=== PATIENT | female | born 1970 | race African-American/Black ===

== ENCOUNTER 2020-09-16 06:32 | Inpatient (IN) ==
[2020-09-16 08:02] LABS: Amorphous Crystals,Urine Occasional /HPF (Few); Bilirubin,Urine Negative (Negative); Blood, Urine Negative (Negative); Glucose,Urine (UA) Negative (Negative); Ketones,Urine Negative (Negative); Mucus,Urine Occasional /LPF (Occasional); Nitrite,Urine Negative (Negative); Protein,Urine Negative; RBC,Urine 2 /HPF (0-4); Squamous Epithelial Cell,Urine Moderate /HPF (0-10); Urine Appearance CLOUDY (Clear); Urine Color Yellow (Yellow); Urine Specific Gravity 1.014 (1.001-1.035); Urine Urobilinogen < 2.0 EU/DL (0.2-1.0); WBC,Urine 1 /HPF (0-6)
[2020-09-16 08:15] LABS: Barbiturates Screen,Urine Negative (Negative); Benzodiazepines Screen,Urine Negative (Negative); Cannabinoid Screen,Urine Negative (Negative); Opiate Screen,Urine Negative (Negative); Phencyclidine Screen,Urine Negative (Negative)
[2020-09-16] MEDS ORDERED: ONDANSETRON 4 MG/2 ML VIAL IV STA (08:45)
[2020-09-16] MEDS ORDERED: fentaNYL 100 MCG/2 ML VIAL IV STA (08:45)
[2020-09-16 09:16] LABS: Basophils % 0.5 % (0.0-0.8); Eosinophils # 0.1 10*3/uL (0.0-0.87); Eosinophils % 0.7 % (0.00-10.9); Hematocrit 30.4 VOL% (35.7-47.0); Hemoglobin 9.1 GM/DL (12.0-16.0); Immature Granulocytes % 0.4 %; Immature Granulocytes Absolute 0.03 #; Lymphocytes # 1.1 10*3/uL (1.4-4.0); Lymphocytes % 14.3 % (21.3-54.2); Mean Corpuscular HGB Conc 29.9 GM/DL (32-36); Mean Corpuscular Volume 68.5 FL (87-102); Mean Platelet Volume 10.8 FL (9.6-12.0); Monocytes % 9.5 % (1.7-12.7); Neutrophils % 74.6 % (38.7-73.9); Platelet Count 647 T/CUMM (130-400); Red Blood Count 4.44 MC/CUMM (3.8-5.5); Red Cell Distribution Width 16.7 % (9.3-17.3); White Blood Count 7.3 T/CUMM (4-12)
[2020-09-16 09:43] LABS: Albumin 2.7 G/DL (3.4-5.0); Bilirubin,Total 0.4 MG/DL (0.2-1.0); Calcium 10.2 MG/DL (8.5-10.1); Total Protein 8.4 G/DL (6.4-8.3)
[2020-09-16] MEDS ORDERED: BISACODYL 5 MG TABLET PO PRN (10:23)
[2020-09-16] MEDS ORDERED: GLUCAGON 1 MG VIAL IM PRN (10:23)
[2020-09-16] MEDS ORDERED: ACETAMINOPHEN 325 MG TABLET PO PRN (10:23)
[2020-09-16] MEDS ORDERED: DEXTROSE 50% 25 GM/50 ML VIAL IV PRN (10:23)
[2020-09-16] MEDS ORDERED: hydrALAZINE 20 MG/1 ML VIAL IV PRN (10:23)
[2020-09-16] MEDS ORDERED: HYDROmorphone 2 MG/1 ML VIAL IV PRN (10:27)
[2020-09-16] MEDS ORDERED: ALPRAZolam 0.25 MG TABLET PO PRN (10:28)
[2020-09-16] MEDS ORDERED: diphenhydrAMINE 50 MG/1 ML VIAL IV PRN (10:28)
[2020-09-16 10:55] LABS: Thyroid Stimulating Hormone 1.23 uIU/ml (0.358-3.74)
[2020-09-16] MEDS: ENOXAPARIN 40 MG/0.4 ML SYRINGE SUBCUT SCH (16:36)
[2020-09-16] MEDS ORDERED: oxyCODONE/ACETAMINOPHEN 5-325 MG TABLET PO ONE (19:10)
[2020-09-16] MEDS ORDERED: oxyCODONE/ACETAMINOPHEN 5-325 MG TABLET ONE (19:13)
[2020-09-16] MEDS ORDERED: GABAPENTIN 100 MG CAPSULE ONE (19:15)
[2020-09-16] MEDS: FERROUS SULFATE 325 MG TABLET PO SCH (23:38)
[2020-09-17 05:03] LABS: Total Protein (Chem) 8.4 G/DL (6.4-8.3)
[2020-09-17 05:57] LABS: Basophils % 0.5 % (0.0-0.8); Eosinophils # 0.1 10*3/uL (0.0-0.87); Eosinophils % 1.1 % (0.00-10.9); Hematocrit 30.7 VOL% (35.7-47.0); Hemoglobin 8.9 GM/DL (12.0-16.0); Immature Granulocytes % 0.5 %; Immature Granulocytes Absolute 0.03 #; Lymphocytes # 0.9 10*3/uL (1.4-4.0); Lymphocytes % 14.2 % (21.3-54.2); Mean Corpuscular Volume 69.5 FL (87-102); Mean Platelet Volume 11.1 FL (9.6-12.0); Monocytes % 14.5 % (1.7-12.7); Neutrophils % 69.2 % (38.7-73.9); Platelet Count 660 T/CUMM (130-400); Red Blood Count 4.42 MC/CUMM (3.8-5.5); Red Cell Distribution Width 16.2 % (9.3-17.3); White Blood Count 6.3 T/CUMM (4-12)
[2020-09-17 06:11] LABS: Albumin 2.5 G/DL (3.4-5.0); Bilirubin,Total 0.4 MG/DL (0.2-1.0); Calcium 10.3 MG/DL (8.5-10.1); Total Protein 7.7 G/DL (6.4-8.3)
[2020-09-17 06:23] LABS: Immunoglobulin A 428 MG/DL (70-400); Immunoglobulin G 1230 MG/DL (700-1600); Immunoglobulin M 194 MG/DL (40-230)
[2020-09-17 07:18] LABS: Albumin (SPE) 3.9 G/DL (3.2-5.3); Alpha 1 (SPE) 0.5 G/DL (0.1-0.4); Alpha 1 (SPE) Rel % 5.7 %; Alpha 2 (SPE) 1.4 G/DL (0.4-1.0); Alpha 2 (SPE) Rel % 17.1 %; Beta (SPE) 1.3 G/DL (0.5-1.1); Beta (SPE) Rel % 15.6 %; Gamma (SPE) 1.3 G/DL (0.7-1.7); Gamma (SPE) Rel % 15.6 %
[2020-09-17 07:48] LABS: Immunoglobulin A (Chem) 428 MG/DL (70-400); Immunoglobulin G (Chem) 1230 MG/DL (700-1600); Immunoglobulin M (Chem) 194 MG/DL (40-230)
[2020-09-17] MEDS: ALBUTEROL 2.5 MG/3 ML NEB RESP TX PRN ×2 (08:05→16:34)
[2020-09-17 08:18] LABS: INR 1.1; PT Patient Result 11.9 SECS (9.8-11.9)
[2020-09-17] MEDS ORDERED: LIDOCAINE MPF 1% /EPI 30 ML VIAL ONE (09:42)
[2020-09-17] MEDS: fentaNYL 12 MCG/HR PATCH TRANSDERM SCH (11:13)
[2020-09-17] MEDS: FERROUS SULFATE 325 MG TABLET PO SCH ×2 (11:13→21:10)
[2020-09-17] MEDS: DEXAMETHASONE 10 MG/1 ML VIAL IV SCH (11:13)
[2020-09-17] MEDS: KETOROLAC 15 MG/1 ML VIAL IV PRN ×2 (11:14→18:04)
[2020-09-17] MEDS: GABAPENTIN 100 MG CAPSULE PO SCH ×3 (11:14→21:10)
[2020-09-17] MEDS ORDERED: DIAZEPAM 5 MG TABLET PO ONE (12:00)
[2020-09-17] MEDS ORDERED: SODIUM CHLORIDE 0.45% 1,000 ML IV SCH (12:00)
[2020-09-17] MEDS ORDERED: GABAPENTIN 100 MG CAPSULE PO SCH (19:10)
[2020-09-17] MEDS: ENOXAPARIN 40 MG/0.4 ML SYRINGE SUBCUT SCH (21:11)
[2020-09-17] MEDS: MORPHINE 4 MG/1 ML VIAL IV PRN (23:20)
[2020-09-18 07:08] LABS: Basophils % 0.1 % (0.0-0.8); Hematocrit 28.9 VOL% (35.7-47.0); Hemoglobin 8.6 GM/DL (12.0-16.0); Immature Granulocytes % 0.3 %; Immature Granulocytes Absolute 0.02 #; Lymphocytes # 1.1 10*3/uL (1.4-4.0); Lymphocytes % 15.6 % (21.3-54.2); Mean Corpuscular HGB Conc 29.8 GM/DL (32-36); Mean Corpuscular Volume 68.2 FL (87-102); Mean Platelet Volume 10.9 FL (9.6-12.0); Monocytes % 13.2 % (1.7-12.7); Neutrophils % 70.8 % (38.7-73.9); Platelet Count 645 T/CUMM (130-400); Red Blood Count 4.24 MC/CUMM (3.8-5.5); Red Cell Distribution Width 16.5 % (9.3-17.3)
[2020-09-18 07:45] LABS: Albumin 2.5 G/DL (3.4-5.0); Bilirubin,Total 0.5 MG/DL (0.2-1.0); Calcium 10.2 MG/DL (8.5-10.1); Osmolality,Calculated 277.7 MOS/KG (273-304); Total Protein 7.8 G/DL (6.4-8.3)
[2020-09-18] MEDS: MORPHINE 4 MG/1 ML VIAL IV PRN ×3 (09:16→22:03)
[2020-09-18] MEDS: DEXAMETHASONE 10 MG/1 ML VIAL IV SCH (09:18)
[2020-09-18] MEDS: FERROUS SULFATE 325 MG TABLET PO SCH ×2 (09:19→21:11)
[2020-09-18] MEDS: GABAPENTIN 100 MG CAPSULE PO SCH ×3 (09:19→21:11)
[2020-09-18 09:33] LABS: Immuno Free Light Chain Kappa 2.29 MG/DL (0.33-1.94); Immuno Free Light Chain Lambda 2.31 MG/DL (0.57-2.63); Immuno Free Light Chain Ratio 0.99 MG/DL (0.26-1.65)
[2020-09-18] MEDS ORDERED: DIAZEPAM 5 MG TABLET PO ONE (13:30)
[2020-09-18] MEDS: METOPROLOL TARTRATE 25 MG TABLET PO SCH (21:11)
[2020-09-18] MEDS: ENOXAPARIN 40 MG/0.4 ML SYRINGE SUBCUT SCH (21:12)
[2020-09-19 05:45] LABS: Albumin 2.7 G/DL (3.4-5.0); Bilirubin,Total 0.5 MG/DL (0.2-1.0); Calcium 10.2 MG/DL (8.5-10.1); Osmolality,Calculated 276.8 MOS/KG (273-304); Total Protein 7.9 G/DL (6.4-8.3)
[2020-09-19 05:51] LABS: Basophils % 0.2 % (0.0-0.8); Hematocrit 31.5 VOL% (35.7-47.0); Immature Granulocytes % 0.7 %; Immature Granulocytes Absolute 0.07 #; Lymphocytes # 1.6 10*3/uL (1.4-4.0); Lymphocytes % 15.1 % (21.3-54.2); Mean Corpuscular HGB Conc 27.9 GM/DL (32-36); Mean Corpuscular Volume 71.3 FL (87-102); Mean Platelet Volume 11.6 FL (9.6-12.0); Monocytes % 11.7 % (1.7-12.7); Neutrophils % 72.3 % (38.7-73.9); Platelet Count 722 T/CUMM (130-400); Red Blood Count 4.42 MC/CUMM (3.8-5.5); Red Cell Distribution Width 16.7 % (9.3-17.3); White Blood Count 10.7 T/CUMM (4-12)
[2020-09-19 05:53] LABS: Hemoglobin 8.8 GM/DL (12.0-16.0)
[2020-09-19 05:55] LABS: Estradiol 21.8 PG/ML; Follicle Stimulating Hormone 1.5 MIU/ML; Luteinizing Hormone 0.2 MIU/ML
[2020-09-19 06:33] LABS: Hypochromasia 1+; Microcytosis 1+; Ovalocytes Slight; Platelet Estimate Increased
[2020-09-19 06:43] LABS: Hepatitis B Core IgM Quant 0.13 Index; Hepatitis B Surface Ag Quant 0.59 Index; Hepatitis B Surface Ag Result Non-Reactive (NonReactive); Hepatitis C Virus Ab Quant 0.04 Index; Hepatitis C Virus Ab Result Non-Reactive (NonReactive)
[2020-09-19] MEDS: GABAPENTIN 100 MG CAPSULE PO SCH (08:16)
[2020-09-19] MEDS: DEXAMETHASONE 10 MG/1 ML VIAL IV SCH (08:17)
[2020-09-19] MEDS: FERROUS SULFATE 325 MG TABLET PO SCH ×2 (08:17→22:45)
[2020-09-19] MEDS: METOPROLOL TARTRATE 25 MG TABLET PO SCH (08:17)
[2020-09-19] MEDS: MORPHINE 4 MG/1 ML VIAL IV PRN ×3 (08:17→22:45)
[2020-09-19] MEDS ORDERED: oxyCODONE/ACETAMINOPHEN 5-325 MG TABLET PO PRN (09:27)
[2020-09-19] MEDS: TAMOXIFEN 10 MG TABLET PO SCH (16:28)
[2020-09-19] MEDS: GABAPENTIN 300 MG CAPSULE PO SCH ×2 (16:28→22:45)
[2020-09-19] MEDS: ONDANSETRON 4 MG/2 ML VIAL IV PRN (22:45)
[2020-09-19] MEDS: METOPROLOL TARTRATE 50 MG TABLET PO SCH (22:45)
[2020-09-19] MEDS: ENOXAPARIN 40 MG/0.4 ML SYRINGE SUBCUT SCH (23:00)
[2020-09-20] MEDS: MORPHINE 4 MG/1 ML VIAL IV PRN ×2 (02:53→07:46)
[2020-09-20] MEDS: ONDANSETRON 4 MG/2 ML VIAL IV PRN ×2 (02:59→07:45)
[2020-09-20] MEDS: ALBUTEROL 2.5 MG/3 ML NEB RESP TX PRN (06:04)
[2020-09-20] MEDS: FERROUS SULFATE 325 MG TABLET PO SCH (09:35)
[2020-09-20] MEDS: METOPROLOL TARTRATE 50 MG TABLET PO SCH (09:35)
[2020-09-20] MEDS: TAMOXIFEN 10 MG TABLET PO SCH (09:35)
[2020-09-20] MEDS: DEXAMETHASONE 10 MG/1 ML VIAL IV SCH (09:35)
[2020-09-20] MEDS: GABAPENTIN 300 MG CAPSULE PO SCH ×2 (09:35→15:21)
[2020-09-20] MEDS: fentaNYL 12 MCG/HR PATCH TRANSDERM SCH (09:36)
[2020-09-20 13:49] VITALS: BP 143/84
== END 2020-09-20 15:30 | disposition home or self-care (01) | DRG 988 ==
LOC: N.ED 06:32 → N.EDINP 06:32 → SUATTDRO 09:00 → N.5E 21:22
PROVIDERS: ADMIT Internal Medicine; ATTEND Internal Medicine

== ENCOUNTER 2020-10-05 02:32 | Inpatient (IN) ==
[2020-10-05] MEDS ORDERED: SODIUM CHLORIDE 0.9% 1,000 ML IV STA (02:58)
[2020-10-05] MEDS ORDERED: ONDANSETRON 4 MG/2 ML VIAL IV ONE (02:59)
[2020-10-05 04:03] LABS: Basophils % 0.2 % (0.0-0.8); Eosinophils % 0.5 % (0.00-10.9); Hematocrit 32.3 VOL% (35.7-47.0); Hemoglobin 9.7 GM/DL (12.0-16.0); Immature Granulocytes % 0.3 %; Immature Granulocytes Absolute 0.02 #; Lymphocytes % 14.4 % (21.3-54.2); Mean Corpuscular Volume 68.6 FL (87-102); Neutrophils % 74.6 % (38.7-73.9); Platelet Count 314 T/CUMM (130-400); Red Blood Count 4.71 MC/CUMM (3.8-5.5); Red Cell Distribution Width 17.3 % (9.3-17.3); White Blood Count 6.6 T/CUMM (4-12)
[2020-10-05 04:05] LABS: Bacteria,Urine Occasional /HPF (Few); Bilirubin,Urine Negative (Negative); Blood, Urine Negative (Negative); Glucose,Urine (UA) >=500 mg/dL (Negative); Hyaline Casts,Urine 2 /LPF (0-3); Ketones,Urine 5 mg/dL (Negative); Mucus,Urine Occasional /LPF (Occasional); Nitrite,Urine Negative (Negative); Protein,Urine Negative; RBC,Urine 4 /HPF (0-4); Squamous Epithelial Cell,Urine Occasional /HPF (0-10); Urine Appearance CLEAR (Clear); Urine Color Yellow (Yellow); Urine Specific Gravity 1.036 (1.001-1.035); Urine Urobilinogen < 2.0 EU/DL (0.2-1.0); WBC,Urine 1 /HPF (0-6)
[2020-10-05 04:20] LABS: Albumin 2.4 G/DL (3.4-5.0); Bilirubin,Total 0.6 MG/DL (0.2-1.0); Calcium 10.3 MG/DL (8.5-10.1); Osmolality,Calculated 278.7 MOS/KG (273-304); Potassium 4.1 MMOL/L (3.5-5.1); Total Protein 7.6 G/DL (6.4-8.3)
[2020-10-05] MEDS ORDERED: PROMETHAZINE 25 MG/1 ML VIAL IM PRN (04:34)
[2020-10-05] MEDS ORDERED: GLUCAGON 1 MG VIAL IM PRN ×2 (04:34→09:30)
[2020-10-05] MEDS ORDERED: NICOTINE 21 MG/24 HR PATCH TRANSDERM PRN (04:34)
[2020-10-05] MEDS ORDERED: diphenhydrAMINE CAP 25 MG CAPSULE PO PRN (04:34)
[2020-10-05] MEDS ORDERED: DEXTROSE 50% 25 GM/50 ML VIAL IV PRN ×2 (04:34→09:30)
[2020-10-05 04:35] LABS: Platelet Estimate Adequate
[2020-10-05] MEDS ORDERED: HYDROmorphone 2 MG/1 ML VIAL IV STA (04:35)
[2020-10-05] MEDS ORDERED: LABETALOL 20 MG/4 ML SYRINGE IV ONE ×2 (05:14→05:15)
[2020-10-05] MEDS: SODIUM CHLORIDE 0.9% 1,000 ML IV SCH ×2 (06:25→15:19)
[2020-10-05] MEDS: GABAPENTIN 300 MG CAPSULE PO SCH ×3 (09:16→20:57)
[2020-10-05] MEDS: TAMOXIFEN 10 MG TABLET PO SCH (09:16)
[2020-10-05] MEDS: ONDANSETRON 4 MG/2 ML VIAL IV PRN ×2 (11:31→15:19)
[2020-10-05] MEDS: MORPHINE 4 MG/1 ML VIAL IV PRN ×3 (11:35→20:57)
[2020-10-05] MEDS: ENOXAPARIN 40 MG/0.4 ML SYRINGE SUBCUT SCH (12:25)
[2020-10-05] MEDS: INSULIN REGULAR 100 UNIT/ML SUBCUT SCH ×3 (12:26→20:58)
[2020-10-05] MEDS ORDERED: ALPRAZolam 0.25 MG TABLET PO PRN (15:46)
[2020-10-05] MEDS: DEXAMETHASONE 4 MG TABLET PO SCH (16:38)
[2020-10-05] MEDS ORDERED: INSULIN GLARGINE 100 UNIT/ML SUBCUT SCH (21:00)
[2020-10-06] MEDS: SODIUM CHLORIDE 0.9% 1,000 ML IV SCH ×3 (01:28→21:13)
[2020-10-06] MEDS: MORPHINE 4 MG/1 ML VIAL IV PRN ×4 (06:13→21:25)
[2020-10-06 06:16] LABS: Hematocrit 27.3 VOL% (35.7-47.0); Hemoglobin 8.1 GM/DL (12.0-16.0); Immature Granulocytes % 0.2 %; Immature Granulocytes Absolute 0.01 #; Lymphocytes # 0.7 10*3/uL (1.4-4.0); Lymphocytes % 15.8 % (21.3-54.2); Mean Corpuscular HGB Conc 29.7 GM/DL (32-36); Mean Corpuscular Volume 68.3 FL (87-102); Monocytes % 6.7 % (1.7-12.7); Neutrophils % 77.3 % (38.7-73.9); Red Cell Distribution Width 17.4 % (9.3-17.3)
[2020-10-06 06:16] LABS: Bilirubin,Urine Negative (Negative); Blood, Urine Negative (Negative); Glucose,Urine (UA) Negative (Negative); Ketones,Urine Negative (Negative); Mucus,Urine Occasional /LPF (Occasional); Nitrite,Urine Negative (Negative); Protein,Urine Negative; RBC,Urine 3 /HPF (0-4); Squamous Epithelial Cell,Urine Moderate /HPF (0-10); Urine Appearance Slightly Hazy (Clear); Urine Color Yellow (Yellow); Urine Specific Gravity 1.013 (1.001-1.035); Urine Urobilinogen < 2.0 EU/DL (0.2-1.0); WBC,Urine 4 /HPF (0-6)
[2020-10-06 06:20] LABS: Platelet Count 243 T/CUMM (130-400); White Blood Count 4.4 T/CUMM (4-12)
[2020-10-06 06:32] LABS: Hypochromasia 1+; Microcytosis 1+; Platelet Estimate Adequate
[2020-10-06 06:35] LABS: Risk Ratio 3.88
[2020-10-06 06:36] LABS: Albumin 2.1 G/DL (3.4-5.0); Bilirubin,Total 0.4 MG/DL (0.2-1.0); Calcium 9.2 MG/DL (8.5-10.1); Total Protein 6.5 G/DL (6.4-8.3)
[2020-10-06] MEDS ORDERED: SODIUM CHLORIDE 0.9% 1,000 ML IV PRN (08:47)
[2020-10-06] MEDS ORDERED: PANTOPRAZOLE 40 MG VIAL IV SCH (09:00)
[2020-10-06] MEDS: TAMOXIFEN 10 MG TABLET PO SCH (09:32)
[2020-10-06] MEDS: DEXAMETHASONE 4 MG TABLET PO SCH (09:32)
[2020-10-06] MEDS: GABAPENTIN 300 MG CAPSULE PO SCH ×3 (09:32→21:12)
[2020-10-06] MEDS: ENOXAPARIN 40 MG/0.4 ML SYRINGE SUBCUT SCH (09:33)
[2020-10-06] MEDS: INSULIN REGULAR 100 UNIT/ML SUBCUT SCH ×4 (09:35→21:11)
[2020-10-06] MEDS ORDERED: FLUCONAZOLE 150 MG TABLET PO ONE (09:45)
[2020-10-06] MEDS: cefTRIAXone 1,000 MG in SYRINGE 1 EACH IV SCH (09:46)
[2020-10-06] MEDS: NYSTATIN 500,000 UNIT/5 ML UDCUP SWISH/SWAL SCH ×3 (16:09→21:12)
[2020-10-06] MEDS: ALBUTEROL 2.5 MG/3 ML NEB RESP TX SCH ×2 (19:15→21:13)
[2020-10-06] MEDS: INSULIN GLARGINE 100 UNIT/ML SUBCUT SCH (21:12)
[2020-10-06] MEDS: PANTOPRAZOLE 40 MG VIAL IV SCH (21:12)
[2020-10-07] MEDS: ALBUTEROL 2.5 MG/3 ML NEB RESP TX SCH ×4 (00:30→19:29)
[2020-10-07 06:06] LABS: Calcium 9.7 MG/DL (8.5-10.1); Osmolality,Calculated 278.8 MOS/KG (273-304); Potassium 3.6 MMOL/L (3.5-5.1)
[2020-10-07 08:17] LABS: Basophils % 0.1 % (0.0-0.8); Eosinophils % 0.4 % (0.00-10.9); Hematocrit 32.3 VOL% (35.7-47.0); Hemoglobin 10.3 GM/DL (12.0-16.0); Immature Granulocytes % 0.3 %; Immature Granulocytes Absolute 0.02 #; Lymphocytes # 1.4 10*3/uL (1.4-4.0); Lymphocytes % 19.8 % (21.3-54.2); Mean Corpuscular HGB Conc 31.9 GM/DL (32-36); Mean Corpuscular Volume 70.8 FL (87-102); Monocytes % 10.2 % (1.7-12.7); Neutrophils % 69.2 % (38.7-73.9); Platelet Count 228 T/CUMM (130-400); Red Blood Count 4.56 MC/CUMM (3.8-5.5); Red Cell Distribution Width 19.5 % (9.3-17.3); White Blood Count 7.2 T/CUMM (4-12)
[2020-10-07 08:35] LABS: Macrocytosis 1+; Platelet Estimate Normal
[2020-10-07 08:36] LABS: Target Cells Few
[2020-10-07 08:37] LABS: Anisocytosis 2+
[2020-10-07] MEDS: INSULIN GLARGINE 100 UNIT/ML SUBCUT SCH ×2 (08:51→20:59)
[2020-10-07] MEDS: INSULIN REGULAR 100 UNIT/ML SUBCUT SCH ×4 (08:52→20:58)
[2020-10-07] MEDS: PANTOPRAZOLE 40 MG VIAL IV SCH ×2 (08:52→21:00)
[2020-10-07] MEDS: DEXAMETHASONE 4 MG TABLET PO SCH (08:54)
[2020-10-07] MEDS: MORPHINE 4 MG/1 ML VIAL IV PRN ×2 (08:54→17:40)
[2020-10-07] MEDS: TAMOXIFEN 10 MG TABLET PO SCH (08:55)
[2020-10-07] MEDS: NYSTATIN 500,000 UNIT/5 ML UDCUP SWISH/SWAL SCH ×4 (08:55→21:00)
[2020-10-07] MEDS: GABAPENTIN 300 MG CAPSULE PO SCH ×3 (08:55→21:00)
[2020-10-07] MEDS: ENOXAPARIN 40 MG/0.4 ML SYRINGE SUBCUT SCH (12:50)
[2020-10-07] MEDS: cefTRIAXone 1,000 MG in SYRINGE 1 EACH IV SCH (12:50)
[2020-10-07] MEDS: fentaNYL 25 MCG/HR PATCH TRANSDERM SCH (12:52)
[2020-10-07] MEDS: SODIUM CHLORIDE 0.9% 1,000 ML IV SCH (17:27)
[2020-10-07] MEDS: NYSTATIN POWDER 15 GM BOTTLE TOP SCH (21:00)
[2020-10-08] MEDS: ALBUTEROL 2.5 MG/3 ML NEB RESP TX SCH ×4 (00:11→18:18)
[2020-10-08] MEDS: MORPHINE 4 MG/1 ML VIAL IV PRN ×4 (00:35→14:11)
[2020-10-08] MEDS: SODIUM CHLORIDE 0.9% 1,000 ML IV SCH ×2 (05:45→14:59)
[2020-10-08] MEDS: INSULIN REGULAR 100 UNIT/ML SUBCUT SCH ×4 (09:25→20:41)
[2020-10-08] MEDS: INSULIN GLARGINE 100 UNIT/ML SUBCUT SCH ×2 (09:26→20:41)
[2020-10-08] MEDS: TAMOXIFEN 10 MG TABLET PO SCH (09:26)
[2020-10-08] MEDS: NYSTATIN 500,000 UNIT/5 ML UDCUP SWISH/SWAL SCH ×4 (09:27→23:41)
[2020-10-08] MEDS: GABAPENTIN 300 MG CAPSULE PO SCH ×3 (09:27→20:42)
[2020-10-08] MEDS: DEXAMETHASONE 4 MG TABLET PO SCH (09:27)
[2020-10-08] MEDS: FLUCONAZOLE 100 MG TABLET PO SCH (09:27)
[2020-10-08] MEDS: NYSTATIN POWDER 15 GM BOTTLE TOP SCH ×2 (09:27→20:42)
[2020-10-08] MEDS: cefTRIAXone 1,000 MG in SYRINGE 1 EACH IV SCH (09:28)
[2020-10-08] MEDS: PANTOPRAZOLE 40 MG VIAL IV SCH ×2 (09:28→20:41)
[2020-10-08] MEDS: ENOXAPARIN 40 MG/0.4 ML SYRINGE SUBCUT SCH (09:28)
[2020-10-09] MEDS: ALBUTEROL 2.5 MG/3 ML NEB RESP TX SCH ×4 (01:08→18:20)
[2020-10-09 05:08] LABS: Basophils % 0.1 % (0.0-0.8); Hematocrit 33.8 VOL% (35.7-47.0); Hemoglobin 10.5 GM/DL (12.0-16.0); Immature Granulocytes % 0.4 %; Immature Granulocytes Absolute 0.03 #; Lymphocytes # 1.2 10*3/uL (1.4-4.0); Lymphocytes % 15.7 % (21.3-54.2); Mean Corpuscular HGB Conc 31.1 GM/DL (32-36); Mean Corpuscular Volume 71.8 FL (87-102); Mean Platelet Volume 11.8 FL (9.6-12.0); Monocytes % 9.7 % (1.7-12.7); Neutrophils % 74.1 % (38.7-73.9); Platelet Count 255 T/CUMM (130-400); Red Blood Count 4.71 MC/CUMM (3.8-5.5); Red Cell Distribution Width 20.4 % (9.3-17.3); White Blood Count 7.3 T/CUMM (4-12)
[2020-10-09] MEDS: MORPHINE 4 MG/1 ML VIAL IV PRN ×4 (05:31→20:14)
[2020-10-09 05:43] LABS: Calcium 9.5 MG/DL (8.5-10.1); Osmolality,Calculated 278.5 MOS/KG (273-304); Potassium 4.2 MMOL/L (3.5-5.1)
[2020-10-09] MEDS ORDERED: ceFAZolin 1,000 MG in SYRINGE 1 EACH IV ONE (08:54)
[2020-10-09] MEDS ORDERED: LIDOCAINE 2% 5 ML VIAL ONE (10:05)
[2020-10-09] MEDS ORDERED: propofoL 200 MG/20 ML VIAL IV ONE (10:05)
[2020-10-09] MEDS ORDERED: MIDAZOLAM 2 MG/2 ML VIAL ONE (10:05)
[2020-10-09] MEDS ORDERED: GLYCOPYRROLATE 0.4 MG/2 ML VIAL ONE (10:05)
[2020-10-09] MEDS ORDERED: SEVOFLURANE 1 UNIT/15 MINUTE INH ONE (10:05)
[2020-10-09] MEDS ORDERED: fentaNYL 100 MCG/2 ML VIAL ONE (10:05)
[2020-10-09] MEDS ORDERED: ONDANSETRON 4 MG/2 ML VIAL ONE (10:05)
[2020-10-09] MEDS ORDERED: PHENYLEPHRINE 1 MG/10 ML SYRINGE IV ONE (10:05)
[2020-10-09] MEDS ORDERED: ROCURONIUM 50 MG/5 ML VIAL IV ONE (10:06)
[2020-10-09] MEDS ORDERED: NEOSTIGMINE 10 MG/10 ML VIAL ONE (10:06)
[2020-10-09] MEDS ORDERED: ONDANSETRON 4 MG/2 ML VIAL IV PRN (10:14)
[2020-10-09] MEDS ORDERED: HYDROmorphone 2 MG/1 ML VIAL IV PRN (10:14)
[2020-10-09] MEDS ORDERED: MEPERIDINE 25 MG/1 ML VIAL IV PRN (10:14)
[2020-10-09] MEDS: SODIUM CHLORIDE 0.9% 1,000 ML IV SCH ×2 (11:14)
[2020-10-09] MEDS: SODIUM CHLORIDE 0.45% 1,000 ML IV SCH (12:29)
[2020-10-09] MEDS: ENOXAPARIN 40 MG/0.4 ML SYRINGE SUBCUT SCH (12:47)
[2020-10-09] MEDS: GABAPENTIN 300 MG CAPSULE PO SCH ×3 (12:47→21:27)
[2020-10-09] MEDS: TAMOXIFEN 10 MG TABLET PO SCH (12:47)
[2020-10-09] MEDS: DEXAMETHASONE 4 MG TABLET PO SCH (12:48)
[2020-10-09] MEDS: NYSTATIN 500,000 UNIT/5 ML UDCUP SWISH/SWAL SCH ×3 (12:48→17:49)
[2020-10-09] MEDS: FLUCONAZOLE 100 MG TABLET PO SCH (12:48)
[2020-10-09] MEDS ORDERED: MORPHINE 4 MG/1 ML VIAL IV ONE (13:00)
[2020-10-09] MEDS: INSULIN REGULAR 100 UNIT/ML SUBCUT SCH ×3 (17:47→21:27)
[2020-10-09] MEDS: PANTOPRAZOLE 40 MG VIAL IV SCH ×2 (17:48→21:28)
[2020-10-09] MEDS: NYSTATIN POWDER 15 GM BOTTLE TOP SCH (17:48)
[2020-10-10] MEDS: NYSTATIN POWDER 15 GM BOTTLE TOP SCH ×2 (00:42→08:47)
[2020-10-10] MEDS: NYSTATIN 500,000 UNIT/5 ML UDCUP SWISH/SWAL SCH ×3 (00:42→13:35)
[2020-10-10] MEDS: MORPHINE 4 MG/1 ML VIAL IV PRN ×4 (00:49→13:44)
[2020-10-10] MEDS: ALBUTEROL 2.5 MG/3 ML NEB RESP TX SCH ×3 (02:30→14:00)
[2020-10-10] MEDS: SODIUM CHLORIDE 0.9% 1,000 ML IV SCH ×2 (05:03→07:50)
[2020-10-10 05:27] LABS: Basophils % 0.5 % (0.0-0.8); Eosinophils # 0.1 10*3/uL (0.0-0.87); Eosinophils % 1.4 % (0.00-10.9); Hematocrit 34.8 VOL% (35.7-47.0); Hemoglobin 10.6 GM/DL (12.0-16.0); Immature Granulocytes % 0.6 %; Immature Granulocytes Absolute 0.05 #; Lymphocytes % 11.6 % (21.3-54.2); Mean Corpuscular HGB Conc 30.5 GM/DL (32-36); Mean Corpuscular Volume 73.9 FL (87-102); Mean Platelet Volume 11.6 FL (9.6-12.0); Monocytes % 9.2 % (1.7-12.7); Neutrophils % 76.7 % (38.7-73.9); Platelet Count 269 T/CUMM (130-400); Red Blood Count 4.71 MC/CUMM (3.8-5.5); Red Cell Distribution Width 21.2 % (9.3-17.3); White Blood Count 8.5 T/CUMM (4-12)
[2020-10-10 05:46] LABS: Calcium 9.3 MG/DL (8.5-10.1); Osmolality,Calculated 278.5 MOS/KG (273-304); Potassium 3.8 MMOL/L (3.5-5.1)
[2020-10-10 07:24] LABS: Anisocytosis 2+; Hypochromasia 4+; Platelet Estimate Normal; Polychromasia Slight; Target Cells 1+; Tear Drop Cells Few
[2020-10-10] MEDS: INSULIN REGULAR 100 UNIT/ML SUBCUT SCH ×3 (08:47→15:45)
[2020-10-10] MEDS: FLUCONAZOLE 100 MG TABLET PO SCH (09:05)
[2020-10-10] MEDS: DEXAMETHASONE 4 MG TABLET PO SCH (09:05)
[2020-10-10] MEDS: GABAPENTIN 300 MG CAPSULE PO SCH ×2 (09:06→15:45)
[2020-10-10] MEDS: TAMOXIFEN 10 MG TABLET PO SCH (09:07)
[2020-10-10] MEDS: PANTOPRAZOLE 40 MG VIAL IV SCH (09:08)
[2020-10-10] MEDS: fentaNYL 25 MCG/HR PATCH TRANSDERM SCH (09:11)
[2020-10-10] MEDS: ENOXAPARIN 40 MG/0.4 ML SYRINGE SUBCUT SCH (09:14)
[2020-10-10] MEDS ORDERED: HEPARIN LOCK FLUSH 500 UNIT/5 ML SYRINGE IV ONE (13:34)
[2020-10-10] MEDS: SODIUM CHLORIDE 0.45% 1,000 ML IV SCH (13:35)
[2020-10-10 19:44] VITALS: BP 145/95
== END 2020-10-10 15:45 | disposition home health service (06) | DRG 496 ==
LOC: EDBD → EDUNIT# → N.EDINP 02:32 → N.ED 02:32 → N.4E 04:58
PROVIDERS: ADMIT Internal Medicine; ATTEND Internal Medicine

== ENCOUNTER 2020-11-13 16:27 | Inpatient (IN) ==
[2020-11-13] MEDS ORDERED: LORazepam 1 MG TABLET PO STA (16:46)
[2020-11-13] MEDS ORDERED: SODIUM CHLORIDE 0.9% 1,000 ML IV STA (16:56)
[2020-11-13] MEDS ORDERED: fentaNYL 100 MCG/2 ML VIAL IV STA (16:56)
[2020-11-13 18:36] LABS: Basophils % 0.2 % (0.0-0.8); Hemoglobin 8.6 GM/DL (12.0-16.0); Immature Granulocytes % 1.1 %; Immature Granulocytes Absolute 0.07 #; Lymphocytes # 0.5 10*3/uL (1.4-4.0); Lymphocytes % 6.9 % (21.3-54.2); Mean Corpuscular HGB Conc 29.7 GM/DL (32-36); Mean Corpuscular Volume 77.5 FL (87-102); Monocytes % 0.9 % (1.7-12.7); Neutrophils % 90.9 % (38.7-73.9); Platelet Count 544 T/CUMM (130-400); Red Blood Count 3.74 MC/CUMM (3.8-5.5); Red Cell Distribution Width 20.1 % (9.3-17.3); White Blood Count 6.7 T/CUMM (4-12)
[2020-11-13 18:51] LABS: Calcium 8.4 MG/DL (8.5-10.1); Osmolality,Calculated 280.5 MOS/KG (273-304); Potassium 3.5 MMOL/L (3.5-5.1)
[2020-11-13 18:58] LABS: Anisocytosis 1+; Hypochromasia 1+; Lymphocytes 8 % (20-55); Schistocytes Few; Segmented Neutrophils 92 % (50-85); Target Cells 1+; Total Cells Counted 100
[2020-11-13 18:59] LABS: Platelet Estimate Adequate; Polychromasia Few
[2020-11-13] MEDS ORDERED: HYDROmorphone 2 MG/1 ML VIAL IV STA (19:07)
[2020-11-13] MEDS ORDERED: ONDANSETRON 4 MG/2 ML VIAL IV STA (19:07)
[2020-11-13] MEDS ORDERED: DEXTROSE 50% 25 GM/50 ML VIAL IV PRN (19:39)
[2020-11-13] MEDS ORDERED: GLUCAGON 1 MG VIAL IM PRN (19:39)
[2020-11-13] MEDS ORDERED: MORPHINE ER 30 MG TABLET PO PRN (19:43)
[2020-11-13] MEDS ORDERED: ALBUTEROL 2.5 MG/3 ML NEB RESP TX PRN (19:43)
[2020-11-13] MEDS ORDERED: LORazepam 2 MG/1 ML VIAL IV PRN (19:53)
[2020-11-13] MEDS ORDERED: ENOXAPARIN 40 MG/0.4 ML SYRINGE SUBCUT SCH (20:00)
[2020-11-13] MEDS: fentaNYL 100 MCG/2 ML VIAL IV PRN (21:04)
[2020-11-13] MEDS: GABAPENTIN 300 MG CAPSULE PO SCH (21:35)
[2020-11-13] MEDS: METOPROLOL TARTRATE 50 MG TABLET PO SCH (21:35)
[2020-11-13] MEDS: DOCUSATE SODIUM 100 MG/10 ML UDCUP PO SCH (21:35)
[2020-11-13] MEDS: SODIUM CHLORIDE 0.45% 1,000 ML IV SCH (21:36)
[2020-11-13] MEDS: INSULIN REGULAR 100 UNIT/ML SUBCUT SCH (21:45)
[2020-11-13] MEDS: oxyCODONE/ACETAMINOPHEN 5-325 MG TABLET PO PRN (21:45)
[2020-11-14] MEDS: oxyCODONE/ACETAMINOPHEN 5-325 MG TABLET PO PRN ×3 (04:43→21:43)
[2020-11-14] MEDS: SODIUM CHLORIDE 0.45% 1,000 ML IV SCH (04:43)
[2020-11-14 05:49] LABS: Basophils % 0.2 % (0.0-0.8); Hematocrit 26.2 VOL% (35.7-47.0); Hemoglobin 7.6 GM/DL (12.0-16.0); Immature Granulocytes % 0.5 %; Immature Granulocytes Absolute 0.03 #; Lymphocytes # 0.9 10*3/uL (1.4-4.0); Lymphocytes % 14.3 % (21.3-54.2); Mean Corpuscular Volume 79.2 FL (87-102); Mean Platelet Volume 11.8 FL (9.6-12.0); Platelet Count 487 T/CUMM (130-400); Red Blood Count 3.31 MC/CUMM (3.8-5.5); Red Cell Distribution Width 20.3 % (9.3-17.3); White Blood Count 6.3 T/CUMM (4-12)
[2020-11-14 06:00] LABS: Albumin 2.5 G/DL (3.4-5.0); Bilirubin,Total 0.4 MG/DL (0.2-1.0); Osmolality,Calculated 276.4 MOS/KG (273-304); Potassium 3.8 MMOL/L (3.5-5.1); Total Protein 6.2 G/DL (5.0-7.5)
[2020-11-14] MEDS ORDERED: ceFAZolin 2,000 MG in PREMIX 1 EACH IV ONE (07:16)
[2020-11-14] MEDS: fentaNYL 100 MCG/2 ML VIAL IV PRN (07:19)
[2020-11-14] MEDS ORDERED: fentaNYL 100 MCG/2 ML VIAL ONE ×2 (08:11→11:25)
[2020-11-14] MEDS ORDERED: ROCURONIUM 50 MG/5 ML VIAL IV ONE (08:11)
[2020-11-14] MEDS ORDERED: LIDOCAINE 2% 5 ML VIAL ONE (08:11)
[2020-11-14] MEDS ORDERED: ONDANSETRON 4 MG/2 ML VIAL ONE (08:11)
[2020-11-14] MEDS ORDERED: MIDAZOLAM 2 MG/2 ML VIAL ONE (08:11)
[2020-11-14] MEDS ORDERED: propofoL 200 MG/20 ML VIAL IV ONE (08:11)
[2020-11-14] MEDS ORDERED: DEXAMETHASONE 4 MG/1 ML VIAL ONE (08:11)
[2020-11-14] MEDS: INSULIN REGULAR 100 UNIT/ML SUBCUT SCH ×4 (08:44→21:44)
[2020-11-14] MEDS ORDERED: BACITRACIN OINT 0.9 GM PACK TOP ONE ×2 (08:46→11:24)
[2020-11-14] MEDS ORDERED: MAGNESIUM HYDROXIDE SUSP 30 ML UDCUP PO PRN (09:09)
[2020-11-14] MEDS ORDERED: KETOROLAC 30 MG/1 ML VIAL IV PRN (09:09)
[2020-11-14] MEDS ORDERED: SODIUM CHLORIDE 0.9% 1,000 ML IV PRN (09:12)
[2020-11-14] MEDS ORDERED: FUROSEMIDE 40 MG/4 ML VIAL IV PRN (09:12)
[2020-11-14] MEDS: DOCUSATE SODIUM 100 MG/10 ML UDCUP PO SCH ×2 (09:31→21:44)
[2020-11-14] MEDS: GABAPENTIN 300 MG CAPSULE PO SCH ×3 (10:06→21:43)
[2020-11-14] MEDS: PANTOPRAZOLE 40 MG TABLET PO SCH (10:06)
[2020-11-14] MEDS ORDERED: KETAMINE 500 MG/10 ML VIAL ONE (10:09)
[2020-11-14] MEDS ORDERED: PHENYLEPHRINE 10 MG/1 ML VIAL IV ONE (10:22)
[2020-11-14] MEDS ORDERED: ACETAMINOPHEN 1,000 MG/100 ML VIAL IV ONE (11:43)
[2020-11-14] MEDS ORDERED: MEPERIDINE 25 MG/1 ML VIAL IV PRN (11:55)
[2020-11-14] MEDS ORDERED: ONDANSETRON 4 MG/2 ML VIAL IV PRN (11:55)
[2020-11-14] MEDS ORDERED: diphenhydrAMINE 50 MG/1 ML VIAL IV PRN (11:55)
[2020-11-14] MEDS ORDERED: SEVOFLURANE 1 UNIT/15 MINUTE INH ONE (11:55)
[2020-11-14] MEDS ORDERED: PROMETHAZINE INJ 25 MG in SODIUM CHLORIDE 0.9% 50 ML IV PRN (11:55)
[2020-11-14] MEDS ORDERED: HYDROmorphone 2 MG/1 ML VIAL IV PRN (11:55)
[2020-11-14] MEDS: DEXAMETHASONE 4 MG TABLET PO SCH (12:13)
[2020-11-14] MEDS: METOPROLOL TARTRATE 50 MG TABLET PO SCH ×2 (12:13→21:43)
[2020-11-14 12:20] LABS: Basophils % 0.2 % (0.0-0.8); Hematocrit 21.5 VOL% (35.7-47.0); Hemoglobin 6.5 GM/DL (12.0-16.0); Immature Granulocytes % 1.1 %; Immature Granulocytes Absolute 0.11 #; Lymphocytes # 0.6 10*3/uL (1.4-4.0); Lymphocytes % 5.5 % (21.3-54.2); Mean Corpuscular HGB Conc 30.2 GM/DL (32-36); Mean Corpuscular Volume 76.2 FL (87-102); Mean Platelet Volume 11.1 FL (9.6-12.0); Monocytes % 3.6 % (1.7-12.7); Neutrophils % 89.6 % (38.7-73.9); Platelet Count 394 T/CUMM (130-400); Red Blood Count 2.82 MC/CUMM (3.8-5.5); Red Cell Distribution Width 19.8 % (9.3-17.3); White Blood Count 10.2 T/CUMM (4-12)
[2020-11-14] MEDS: LACTATED RINGERS 1,000 ML IV SCH (12:20)
[2020-11-14] MEDS: ceFAZolin 2,000 MG in PREMIX 1 EACH IV SCH (12:30)
[2020-11-14] MEDS ORDERED: ceFAZolin 1,000 MG VIAL ONE (12:33)
[2020-11-14] MEDS: HYDROmorphone 2 MG/1 ML VIAL IV PRN ×5 (12:35→17:57)
[2020-11-14] MEDS: ONDANSETRON 4 MG/2 ML VIAL IV PRN (17:46)
[2020-11-14] MEDS: FILGRASTIM-SNDZ 300 MCG/0.5 ML SYRINGE SUBCUT SCH (18:33)
[2020-11-14 19:25] LABS: Hematocrit 27.5 VOL% (35.7-47.0); Hemoglobin 8.6 GM/DL (12.0-16.0)
[2020-11-14] MEDS: DOCUSATE SODIUM 100 MG CAPSULE PO SCH (21:43)
[2020-11-15] MEDS: LACTATED RINGERS 1,000 ML IV SCH (00:09)
[2020-11-15] MEDS: ceFAZolin 2,000 MG in PREMIX 1 EACH IV SCH (01:16)
[2020-11-15] MEDS: oxyCODONE/ACETAMINOPHEN 5-325 MG TABLET PO PRN ×3 (01:23→10:37)
[2020-11-15] MEDS: FONDAPARINUX 2.5 MG/0.5 ML SYRINGE SUBCUT SCH (04:03)
[2020-11-15 05:53] LABS: Basophils % 0.2 % (0.0-0.8); Hematocrit 28.9 VOL% (35.7-47.0); Immature Granulocytes % 0.9 %; Immature Granulocytes Absolute 0.19 #; Lymphocytes % 4.6 % (21.3-54.2); Mean Corpuscular HGB Conc 31.1 GM/DL (32-36); Mean Platelet Volume 12.1 FL (9.6-12.0); Monocytes % 3.2 % (1.7-12.7); NRBC # 0.02 10*3/uL; Neutrophils % 91.1 % (38.7-73.9); Platelet Count 321 T/CUMM (130-400); Red Blood Count 3.66 MC/CUMM (3.8-5.5); Red Cell Distribution Width 18.8 % (9.3-17.3); White Blood Count 20.6 T/CUMM (4-12)
[2020-11-15 06:25] LABS: Calcium 7.5 MG/DL (8.5-10.1); Osmolality,Calculated 274.5 MOS/KG (273-304); Potassium 3.5 MMOL/L (3.5-5.1); Thyroid Stimulating Hormone 1.48 uIU/ml (0.358-3.74)
[2020-11-15 06:28] LABS: Band Neutrophils 2 % (0-10); Lymphocytes 4 % (20-55); Platelet Estimate Normal; Segmented Neutrophils 92 % (50-85)
[2020-11-15 06:29] LABS: Hypochromasia Slight; Microcytosis Slight; Total Cells Counted 100
[2020-11-15] MEDS: INSULIN REGULAR 100 UNIT/ML SUBCUT SCH ×4 (07:10→21:59)
[2020-11-15] MEDS: HYDROmorphone 2 MG/1 ML VIAL IV PRN ×4 (09:00→21:34)
[2020-11-15] MEDS: ONDANSETRON 4 MG/2 ML VIAL IV PRN (09:11)
[2020-11-15] MEDS: DOCUSATE SODIUM 100 MG CAPSULE PO SCH ×2 (09:17→20:21)
[2020-11-15] MEDS: DEXAMETHASONE 4 MG TABLET PO SCH (09:18)
[2020-11-15] MEDS: METOPROLOL TARTRATE 50 MG TABLET PO SCH ×2 (09:18→20:21)
[2020-11-15] MEDS: PANTOPRAZOLE 40 MG TABLET PO SCH (09:19)
[2020-11-15] MEDS: DOCUSATE SODIUM 100 MG/10 ML UDCUP PO SCH ×2 (09:19→21:58)
[2020-11-15] MEDS: GABAPENTIN 300 MG CAPSULE PO SCH ×3 (09:19→20:21)
[2020-11-15] MEDS: FILGRASTIM-SNDZ 300 MCG/0.5 ML SYRINGE SUBCUT SCH (10:48)
[2020-11-15] MEDS ORDERED: GLUCAGON 1 MG VIAL IM PRN (11:55)
[2020-11-15] MEDS ORDERED: DEXTROSE 50% 25 GM/50 ML VIAL IV PRN (11:55)
[2020-11-15] MEDS: oxyCODONE ER 20 MG TABLET PO SCH (20:22)
[2020-11-16] MEDS: oxyCODONE/ACETAMINOPHEN 5-325 MG TABLET PO PRN ×2 (03:25→14:57)
[2020-11-16] MEDS: FONDAPARINUX 2.5 MG/0.5 ML SYRINGE SUBCUT SCH (03:25)
[2020-11-16] MEDS: ONDANSETRON 4 MG/2 ML VIAL IV PRN ×2 (03:28→19:27)
[2020-11-16 04:33] LABS: Basophils # 0.1 10*3/uL (0.0-0.2); Basophils % 0.5 % (0.0-0.8); Eosinophils % 0.1 % (0.00-10.9); Hematocrit 25.5 VOL% (35.7-47.0); Hemoglobin 8.2 GM/DL (12.0-16.0); Immature Granulocytes % 6.1 %; Immature Granulocytes Absolute 1.13 #; Lymphocytes % 5.2 % (21.3-54.2); Mean Corpuscular HGB Conc 32.2 GM/DL (32-36); Mean Corpuscular Volume 78.2 FL (87-102); Mean Platelet Volume 11.1 FL (9.6-12.0); Monocytes % 1.6 % (1.7-12.7); NRBC # 0.02 10*3/uL; Neutrophils % 86.5 % (38.7-73.9); Platelet Count 241 T/CUMM (130-400); Red Blood Count 3.26 MC/CUMM (3.8-5.5); Red Cell Distribution Width 18.7 % (9.3-17.3); White Blood Count 18.6 T/CUMM (4-12)
[2020-11-16 05:00] LABS: Calcium 7.6 MG/DL (8.5-10.1); Osmolality,Calculated 275.3 MOS/KG (273-304); Potassium 3.3 MMOL/L (3.5-5.1)
[2020-11-16 05:07] LABS: Band Neutrophils 1 % (0-10); Hypochromasia 1+; Lymphocytes 8 % (20-55); Microcytosis 1+; Ovalocytes Slight; Platelet Estimate Adequate; Segmented Neutrophils 91 % (50-85); Total Cells Counted 100
[2020-11-16] MEDS: INSULIN REGULAR 100 UNIT/ML SUBCUT SCH ×4 (07:03→20:41)
[2020-11-16] MEDS: HYDROmorphone 2 MG/1 ML VIAL IV PRN ×3 (08:10→22:22)
[2020-11-16] MEDS: METOPROLOL TARTRATE 50 MG TABLET PO SCH ×3 (09:10→20:41)
[2020-11-16] MEDS: DOCUSATE SODIUM 100 MG CAPSULE PO SCH ×2 (09:10→20:39)
[2020-11-16] MEDS: GABAPENTIN 300 MG CAPSULE PO SCH ×3 (09:10→20:31)
[2020-11-16] MEDS: DOCUSATE SODIUM 100 MG/10 ML UDCUP PO SCH ×3 (09:10→20:41)
[2020-11-16] MEDS: DEXAMETHASONE 4 MG TABLET PO SCH (09:10)
[2020-11-16] MEDS: PANTOPRAZOLE 40 MG TABLET PO SCH (09:11)
[2020-11-16] MEDS: POTASSIUM CHLORIDE 20 MEQ TABLET PO PRN ×2 (09:12→12:03)
[2020-11-16] MEDS: FILGRASTIM-SNDZ 300 MCG/0.5 ML SYRINGE SUBCUT SCH (09:18)
[2020-11-16] MEDS: oxyCODONE ER 20 MG TABLET PO SCH ×2 (09:19→20:31)
[2020-11-17] MEDS: HYDROmorphone 2 MG/1 ML VIAL IV PRN ×2 (01:05→04:36)
[2020-11-17] MEDS: FONDAPARINUX 2.5 MG/0.5 ML SYRINGE SUBCUT SCH (02:47)
[2020-11-17 05:57] LABS: Basophils # 0.3 10*3/uL (0.0-0.2); Basophils % 1.3 % (0.0-0.8); Hematocrit 26.9 VOL% (35.7-47.0); Hemoglobin 8.3 GM/DL (12.0-16.0); Immature Granulocytes % 11.5 %; Immature Granulocytes Absolute 2.21 #; Lymphocytes # 1.4 10*3/uL (1.4-4.0); Lymphocytes % 7.5 % (21.3-54.2); Mean Corpuscular HGB Conc 30.9 GM/DL (32-36); Mean Corpuscular Volume 80.8 FL (87-102); Mean Platelet Volume 13.1 FL (9.6-12.0); Monocytes % 2.2 % (1.7-12.7); Neutrophils % 77.5 % (38.7-73.9); Platelet Count 240 T/CUMM (130-400); Red Blood Count 3.33 MC/CUMM (3.8-5.5); White Blood Count 19.3 T/CUMM (4-12)
[2020-11-17 06:23] LABS: Hypochromasia 2+; Lymphocytes 4 % (20-55); Metamyelocytes 3 %; Microcytosis 1+; Segmented Neutrophils 89 % (50-85); Total Cells Counted 100
[2020-11-17 06:24] LABS: Ovalocytes Slight; Platelet Estimate Normal; Polychromasia Slight; Target Cells Slight
[2020-11-17 06:29] LABS: Calcium 8.5 MG/DL (8.5-10.1); Osmolality,Calculated 264.2 MOS/KG (273-304); Potassium 4.1 MMOL/L (3.5-5.1)
[2020-11-17] MEDS: INSULIN REGULAR 100 UNIT/ML SUBCUT SCH ×4 (07:11→20:50)
[2020-11-17] MEDS: oxyCODONE ER 20 MG TABLET PO SCH ×2 (08:11→20:17)
[2020-11-17] MEDS: DEXAMETHASONE 4 MG TABLET PO SCH (08:11)
[2020-11-17] MEDS: METOPROLOL TARTRATE 50 MG TABLET PO SCH ×2 (08:12→20:16)
[2020-11-17] MEDS: PANTOPRAZOLE 40 MG TABLET PO SCH (08:12)
[2020-11-17] MEDS: GABAPENTIN 300 MG CAPSULE PO SCH ×3 (08:12→20:17)
[2020-11-17] MEDS: DOCUSATE SODIUM 100 MG CAPSULE PO SCH ×2 (08:12→20:17)
[2020-11-17] MEDS: DOCUSATE SODIUM 100 MG/10 ML UDCUP PO SCH ×2 (09:39→20:49)
[2020-11-17] MEDS: FILGRASTIM-SNDZ 300 MCG/0.5 ML SYRINGE SUBCUT SCH (09:39)
[2020-11-17] MEDS: POLYETHYLENE GLYCOL POWDER 17 GM PACK PO SCH (10:11)
[2020-11-17] MEDS ORDERED: fentaNYL 25 MCG/HR PATCH TRANSDERM SCH (10:15)
[2020-11-17] MEDS: ONDANSETRON 4 MG/2 ML VIAL IV PRN (12:36)
[2020-11-17] MEDS: oxyCODONE/ACETAMINOPHEN 5-325 MG TABLET PO PRN (13:59)
[2020-11-18] MEDS: oxyCODONE/ACETAMINOPHEN 5-325 MG TABLET PO PRN ×2 (00:36→15:19)
[2020-11-18] MEDS: HYDROmorphone 2 MG/1 ML VIAL IV PRN ×3 (00:41→21:00)
[2020-11-18] MEDS: FONDAPARINUX 2.5 MG/0.5 ML SYRINGE SUBCUT SCH (03:10)
[2020-11-18 06:02] LABS: Basophils # 0.1 10*3/uL (0.0-0.2); Basophils % 1.8 % (0.0-0.8); Hematocrit 24.7 VOL% (35.7-47.0); Hemoglobin 7.8 GM/DL (12.0-16.0); Immature Granulocytes % 3.7 %; Immature Granulocytes Absolute 0.29 #; Lymphocytes # 1.3 10*3/uL (1.4-4.0); Mean Corpuscular HGB Conc 31.6 GM/DL (32-36); Mean Corpuscular Volume 78.2 FL (87-102); Mean Platelet Volume 12.3 FL (9.6-12.0); Monocytes % 4.3 % (1.7-12.7); Neutrophils % 74.2 % (38.7-73.9); Platelet Count 289 T/CUMM (130-400); Red Blood Count 3.16 MC/CUMM (3.8-5.5); White Blood Count 7.8 T/CUMM (4-12)
[2020-11-18 06:17] LABS: Ferritin 441.1 ng/ml (8-252)
[2020-11-18 06:18] LABS: Albumin 2.2 G/DL (3.4-5.0); Calcium 8.3 MG/DL (8.5-10.1); Osmolality,Calculated 279.1 MOS/KG (273-304); Potassium 4.3 MMOL/L (3.5-5.1); Total Protein 5.6 G/DL (6.4-8.2)
[2020-11-18] MEDS: INSULIN REGULAR 100 UNIT/ML SUBCUT SCH ×4 (07:04→22:46)
[2020-11-18] MEDS ORDERED: ERGOCALCIFEROL 50,000 UNIT CAPSULE PO SCH (08:00)
[2020-11-18] MEDS ORDERED: NON-FORMULARY MEDICATION (Omeprazole 20 mg capsule,delayed release(DR/EC)) PO SCH (09:00)
[2020-11-18] MEDS: METOPROLOL TARTRATE 50 MG TABLET PO SCH ×2 (09:00→22:12)
[2020-11-18] MEDS: PANTOPRAZOLE 40 MG TABLET PO SCH (09:01)
[2020-11-18] MEDS: oxyCODONE ER 20 MG TABLET PO SCH ×3 (09:01→22:12)
[2020-11-18] MEDS: GABAPENTIN 300 MG CAPSULE PO SCH ×3 (09:01→22:12)
[2020-11-18] MEDS ORDERED: POLYETHYLENE GLYCOL POWDER 17 GM PACK PO PRN (09:02)
[2020-11-18] MEDS: DOCUSATE SODIUM 100 MG CAPSULE PO SCH ×2 (09:02→22:12)
[2020-11-18] MEDS ORDERED: SKIN HEALING OINT (AQUAPHOR) 50 GM TUBE TOP PRN (09:05)
[2020-11-18] MEDS: diphenhydrAMINE CAP 25 MG CAPSULE PO PRN (09:18)
[2020-11-18] MEDS: DEXAMETHASONE 4 MG TABLET PO SCH (09:19)
[2020-11-18] MEDS: FILGRASTIM-SNDZ 300 MCG/0.5 ML SYRINGE SUBCUT SCH (09:47)
[2020-11-18] MEDS: DOCUSATE SODIUM 100 MG/10 ML UDCUP PO SCH ×2 (10:37→22:45)
[2020-11-18] MEDS: POLYETHYLENE GLYCOL POWDER 17 GM PACK PO SCH (10:39)
[2020-11-18] MEDS: ONDANSETRON 4 MG/2 ML VIAL IV PRN (15:22)
[2020-11-19] MEDS: ONDANSETRON 4 MG/2 ML VIAL IV PRN (00:07)
[2020-11-19] MEDS: HYDROmorphone 2 MG/1 ML VIAL IV PRN ×2 (00:10→03:06)
[2020-11-19] MEDS: FONDAPARINUX 2.5 MG/0.5 ML SYRINGE SUBCUT SCH (02:58)
[2020-11-19] MEDS: oxyCODONE ER 20 MG TABLET PO SCH (05:48)
[2020-11-19] MEDS: diphenhydrAMINE CAP 25 MG CAPSULE PO PRN (06:03)
[2020-11-19 06:26] LABS: Basophils # 0.1 10*3/uL (0.0-0.2); Basophils % 1.3 % (0.0-0.8); Eosinophils % 0.3 % (0.00-10.9); Hematocrit 25.7 VOL% (35.7-47.0); Hemoglobin 7.9 GM/DL (12.0-16.0); Immature Granulocytes % 6.8 %; Immature Granulocytes Absolute 0.71 #; Lymphocytes # 2.1 10*3/uL (1.4-4.0); Lymphocytes % 20.4 % (21.3-54.2); Mean Corpuscular HGB Conc 30.7 GM/DL (32-36); Mean Corpuscular Volume 80.1 FL (87-102); Mean Platelet Volume 11.1 FL (9.6-12.0); Monocytes % 9.1 % (1.7-12.7); NRBC # 0.09 10*3/uL; Neutrophils % 62.1 % (38.7-73.9); Platelet Count 356 T/CUMM (130-400); Red Blood Count 3.21 MC/CUMM (3.8-5.5); White Blood Count 10.4 T/CUMM (4-12)
[2020-11-19 06:46] LABS: Band Neutrophils 7 % (0-10); Eosinophils 1 % (0-10); Lymphocytes 14 % (20-55); Metamyelocytes 4 %; Myelocytes 3 %; Segmented Neutrophils 64 % (50-85); Total Cells Counted 100
[2020-11-19 06:47] LABS: Hypochromasia 1+; Microcytosis 1+; Ovalocytes Slight; Platelet Estimate Normal; Tear Drop Cells Slight
[2020-11-19] MEDS: DOCUSATE SODIUM 100 MG CAPSULE PO SCH (08:14)
[2020-11-19] MEDS: METOPROLOL TARTRATE 50 MG TABLET PO SCH (08:15)
[2020-11-19] MEDS: GABAPENTIN 300 MG CAPSULE PO SCH (08:15)
[2020-11-19] MEDS: DEXAMETHASONE 4 MG TABLET PO SCH (08:15)
[2020-11-19] MEDS: PANTOPRAZOLE 40 MG TABLET PO SCH (08:15)
[2020-11-19] MEDS: oxyCODONE/ACETAMINOPHEN 5-325 MG TABLET PO PRN (08:17)
[2020-11-19] MEDS: INSULIN REGULAR 100 UNIT/ML SUBCUT SCH ×2 (08:25→10:52)
[2020-11-19 11:09] VITALS: BP 119/66
== END 2020-11-19 12:20 | DRG 481 ==
LOC: EDUNIT# → EDBD → N.ED 16:27 → N.EDINP 19:38 → SUATTDRO 19:38 → N.EDINP 20:38 → N.4E 20:56 → N.3E 11-14 13:34
PROVIDERS: ADMIT Internal Medicine; ATTEND Internal Medicine

== ENCOUNTER 2022-10-16 13:13 | Inpatient (IN) ==
[2022-10-16] MEDS ORDERED: SODIUM CHLORIDE 0.9% 1,000 ML IV STA (14:43)
[2022-10-16] MEDS ORDERED: ONDANSETRON 4 MG/2 ML VIAL IV STA ×2 (14:43→17:52)
[2022-10-16] MEDS ORDERED: MORPHINE 2 MG/1 ML SYRINGE IV STA ×2 (14:43→17:52)
[2022-10-16 15:23] LABS: Basophils % 0.3 % (0.0-0.8); Eosinophils % 0.2 % (0.00-10.9); Hematocrit 24.3 VOL% (35.7-47.0); Hemoglobin 7.4 GM/DL (12.0-16.0); Immature Granulocytes Absolute 0.06 #; Lymphocytes # 0.5 10*3/uL (1.4-4.0); Lymphocytes % 7.5 % (21.3-54.2); Mean Corpuscular HGB Conc 30.5 GM/DL (32-36); Mean Corpuscular Volume 76.4 FL (87-102); Mean Platelet Volume 10.1 FL (9.6-12.0); Monocytes # 0.6 10*3/uL (0.11-0.8); Monocytes % 10.5 % (1.7-12.7); Neutrophils % 80.5 % (38.7-73.9); Platelet Count 332 T/CUMM (130-400); Red Blood Count 3.18 MC/CUMM (3.8-5.5); Red Cell Distribution Width 19.1 % (9.3-17.3); White Blood Count 6.11 T/CUMM (4-12)
[2022-10-16 15:48] LABS: Bilirubin,Total 0.5 MG/DL (0.20-1.00); Osmolality,Calculated 273.5 MOS/KG (273-304); Potassium 3.3 MMOL/L (3.5-5.1)
[2022-10-16] MEDS ORDERED: POTASSIUM CHLORIDE 20 MEQ TABLET PO STA (16:36)
[2022-10-16] MEDS ORDERED: MAGNESIUM SULF RIDER 2 GM/50 ML PREMIX IV STA (16:36)
[2022-10-16 17:29] LABS: Bilirubin,Urine Small mg/dL (Negative); Blood, Urine Moderate mg/dL (Negative); Glucose,Urine (UA) Negative (Negative); Hyaline Casts,Urine 2 /LPF (0-3); Ketones,Urine 40 mg/dL (Negative); Mucus,Urine Few /LPF (Occasional); Nitrite,Urine Negative (Negative); Protein,Urine 30 mg/dL (Negative); RBC,Urine 30-35 /HPF (0-4); Squamous Epithelial Cell,Urine Occasional /HPF (0-10); Urine Appearance Clear (Clear); Urine Color Yellow (Yellow); Urine pH 6.5 (4.5-8.0)
[2022-10-16] MEDS ORDERED: HYDROmorphone 1 MG/1 ML SYRINGE IV STA (17:55)
[2022-10-16] MEDS ORDERED: ACETAMINOPHEN 325 MG TABLET PO PRN (18:12)
[2022-10-16] MEDS ORDERED: hydrALAZINE 20 MG/1 ML VIAL IV PRN (18:12)
[2022-10-16] MEDS ORDERED: MORPHINE 2 MG/1 ML SYRINGE IV PRN (18:12)
[2022-10-16] MEDS ORDERED: MAGNESIUM SULF RIDER 4 GM/100 ML PREMIX IV PRN (18:17)
[2022-10-16] MEDS ORDERED: MAGNESIUM SULF RIDER 2 GM/50 ML PREMIX IV PRN (18:17)
[2022-10-16] MEDS ORDERED: DEXTROSE 5% NACL 0.45% 500 ML IV SCH (18:30)
[2022-10-16] MEDS: ALBUTEROL/IPRATROPIUM 3 ML NEB RESP TX SCH (19:00)
[2022-10-16] MEDS ORDERED: SODIUM CHLORIDE 0.9% 500 ML IV STA (19:42)
[2022-10-16] MEDS ORDERED: METOPROLOL TARTRATE 5 MG/5 ML VIAL IV STA (19:43)
[2022-10-16] MEDS ORDERED: FUROSEMIDE 20 MG/2 ML VIAL IV STA (19:43)
[2022-10-16] MEDS ORDERED: FUROSEMIDE 40 MG/4 ML VIAL IV STA (19:47)
[2022-10-16 20:37] LABS: Folate 4.61 NG/ML (5.38-24.0); Vitamin B12 > 2000 PG/ML (211-911)
[2022-10-16] MEDS ORDERED: DOCUSATE SODIUM 100 MG CAPSULE PO SCH (21:00)
[2022-10-17] MEDS: ALBUTEROL/IPRATROPIUM 3 ML NEB RESP TX SCH ×4 (02:06→19:38)
[2022-10-17] MEDS: HYDROmorphone 1 MG/1 ML SYRINGE IV PRN ×3 (03:06→11:52)
[2022-10-17 04:53] LABS: Basophils % 0.4 % (0.0-0.8); Eosinophils % 0.7 % (0.00-10.9); Hematocrit 22.2 VOL% (35.7-47.0); Hemoglobin 6.7 GM/DL (12.0-16.0); Immature Granulocytes % 0.9 %; Immature Granulocytes Absolute 0.05 #; Lymphocytes # 0.5 10*3/uL (1.4-4.0); Lymphocytes % 9.1 % (21.3-54.2); Mean Corpuscular HGB Conc 30.2 GM/DL (32-36); Mean Corpuscular Volume 78.4 FL (87-102); Mean Platelet Volume 11.1 FL (9.6-12.0); Monocytes # 0.8 10*3/uL (0.11-0.8); Monocytes % 14.7 % (1.7-12.7); Neutrophils % 74.2 % (38.7-73.9); Platelet Count 340 T/CUMM (130-400); Red Blood Count 2.83 MC/CUMM (3.8-5.5); Red Cell Distribution Width 19.4 % (9.3-17.3); White Blood Count 5.39 T/CUMM (4-12)
[2022-10-17 05:21] LABS: Folate 4.14 NG/ML (5.38-24.0); Vitamin B12 > 2000 PG/ML (211-911)
[2022-10-17 05:29] LABS: % Iron Saturation 22.5 % (18-50); Alanine Aminotransferase < 9 U/L (13-56); Albumin 1.9 G/DL (3.4-5.0); Alkaline Phosphatase 128 U/L (45-117); Aspartate Amino Transferase 30 U/L (0-37); Blood Urea Nitrogen 5 MG/DL (7-18); Calcium 8.5 MG/DL (8.5-10.1); Carbon Dioxide 28 MMOL/L (21-32); Chloride 104 MMOL/L (98-107); Cholesterol 70 MG/DL (50-200); Glucose 83 MG/DL (74-106); HDL Cholesterol 41 MG/DL (40-60); Iron 29 UG/DL (50-170); Iron Binding Capacity 129 UG/DL (250-450); Osmolality,Calculated 276.3 MOS/KG (273-304); Potassium 3.2 MMOL/L (3.5-5.1); Risk Ratio 1.71; Sodium 141 MMOL/L (136-145); Total Protein 5.8 G/DL (6.4-8.2); Triglycerides 91 MG/DL (2-150); VLDL Cholesterol 18.2 MG/DL
[2022-10-17 05:31] LABS: Ferritin 2306.8 ng/mL (8-252)
[2022-10-17 06:11] LABS: Sedimentation Rate-Westergren 67 MM/HR (0-30)
[2022-10-17] MEDS ORDERED: SODIUM CHLORIDE 0.9% 1,000 ML IV PRN ×2 (07:26→16:51)
[2022-10-17] MEDS ORDERED: FUROSEMIDE 20 MG/2 ML VIAL IV ONE ×3 (08:40→21:30)
[2022-10-17] MEDS ORDERED: IRON SUCROSE 200 MG in SODIUM CHLORIDE 0.9% 100 ML IV ONE (08:45)
[2022-10-17] MEDS ORDERED: FERRIC GLUCONATE COMPLEX 125 MG in SODIUM CHLORIDE 0.9% 100 ML IV ONE (11:00)
[2022-10-17] MEDS: FOLIC ACID INJ 1 MG in SYRINGE 1 EACH IV SCH ×2 (11:52→21:28)
[2022-10-17] MEDS: TAMOXIFEN 10 MG TABLET PO SCH (11:58)
[2022-10-17] MEDS: CHOLECALCIFEROL 1,000 UNIT TABLET PO SCH (11:59)
[2022-10-17] MEDS: DOCUSATE SODIUM 100 MG/10 ML UDCUP PO SCH ×2 (12:21→21:17)
[2022-10-17] MEDS: [UNRECOGNIZED DRUG - OTHER] PO SCH ×2 (12:25→21:29)
[2022-10-17] MEDS: MORPHINE ER 30 MG TABLET PO PRN (13:40)
[2022-10-17] MEDS: FLUCONAZOLE INJ 200 MG/100 ML PREMIX IV SCH (17:29)
[2022-10-17] MEDS: POTASSIUM CHLORIDE RIDER 10 MEQ/100 ML PREMIX IV PRN (17:30)
[2022-10-17] MEDS ORDERED: FOLIC ACID 1 MG TABLET PO SCH (21:00)
[2022-10-17] MEDS: ONDANSETRON 4 MG/2 ML VIAL IV PRN (21:28)
[2022-10-17] MEDS: FERROUS SULFATE 300 MG/5 ML UDCUP PO SCH (21:28)
[2022-10-18] MEDS: ALBUTEROL/IPRATROPIUM 3 ML NEB RESP TX SCH ×4 (00:30→19:50)
[2022-10-18] MEDS: HYDROmorphone 1 MG/1 ML SYRINGE IV PRN ×3 (00:57→14:32)
[2022-10-18] MEDS: POTASSIUM CHLORIDE RIDER 10 MEQ/100 ML PREMIX IV PRN ×4 (02:11→06:00)
[2022-10-18] MEDS: ONDANSETRON 4 MG/2 ML VIAL IV PRN (08:09)
[2022-10-18 08:42] LABS: Basophils % 0.4 % (0.0-0.8); Eosinophils % 0.5 % (0.00-10.9); Hematocrit 30.7 VOL% (35.7-47.0); Immature Granulocytes % 1.1 %; Immature Granulocytes Absolute 0.06 #; Lymphocytes # 0.5 10*3/uL (1.4-4.0); Lymphocytes % 8.6 % (21.3-54.2); Mean Corpuscular HGB Conc 31.6 GM/DL (32-36); Mean Corpuscular Volume 80.8 FL (87-102); Mean Platelet Volume 11.9 FL (9.6-12.0); Monocytes # 0.9 10*3/uL (0.11-0.8); Monocytes % 15.3 % (1.7-12.7); Neutrophils % 74.1 % (38.7-73.9); Platelet Count 295 T/CUMM (130-400); Red Cell Distribution Width 18.8 % (9.3-17.3); White Blood Count 5.68 T/CUMM (4-12)
[2022-10-18 08:50] LABS: INR 1.2; PT Patient Result 13.2 SECS (10.1-12.1)
[2022-10-18 08:56] LABS: Hemoglobin 9.7 GM/DL (12.0-16.0)
[2022-10-18 09:10] LABS: Bilirubin,Total 0.6 MG/DL (0.20-1.00); Calcium 8.9 MG/DL (8.5-10.1); Osmolality,Calculated 274.4 MOS/KG (273-304); Total Protein 5.8 G/DL (6.4-8.2)
[2022-10-18 09:17] LABS: Hypochromia Slight; Lymphocytes 5 % (20-55); Microcytosis Slight; Platelet Estimate Adequate; Total Cells Counted 100
[2022-10-18] MEDS: TAMOXIFEN 10 MG TABLET PO SCH (09:32)
[2022-10-18] MEDS: CHOLECALCIFEROL 1,000 UNIT TABLET PO SCH (09:32)
[2022-10-18] MEDS: FOLIC ACID INJ 1 MG in SYRINGE 1 EACH IV SCH ×2 (09:34→21:30)
[2022-10-18] MEDS: FERROUS SULFATE 300 MG/5 ML UDCUP PO SCH ×2 (09:34→21:30)
[2022-10-18] MEDS: oxyCODONE/ACETAMINOPHEN 5-325 MG TABLET PO PRN ×2 (09:34→18:08)
[2022-10-18] MEDS: FLUCONAZOLE INJ 200 MG/100 ML PREMIX IV SCH (09:35)
[2022-10-18] MEDS: DOCUSATE SODIUM 100 MG/10 ML UDCUP PO SCH ×3 (09:43→21:35)
[2022-10-18] MEDS ORDERED: ALBUTEROL 2.5 MG/3 ML NEB RESP TX PRN (11:11)
[2022-10-18] MEDS: GABAPENTIN 400 MG CAPSULE PO SCH ×2 (14:33→21:29)
[2022-10-18] MEDS: [UNRECOGNIZED DRUG - OTHER] PO SCH ×2 (16:32→21:29)
[2022-10-19] MEDS: ALBUTEROL/IPRATROPIUM 3 ML NEB RESP TX SCH ×4 (00:17→20:15)
[2022-10-19] MEDS: HYDROmorphone 1 MG/1 ML SYRINGE IV PRN ×3 (04:58→20:49)
[2022-10-19 06:30] LABS: Basophils % 0.4 % (0.0-0.8); Eosinophils % 0.8 % (0.00-10.9); Hematocrit 30.6 VOL% (35.7-47.0); Hemoglobin 9.5 GM/DL (12.0-16.0); Immature Granulocytes % 0.6 %; Immature Granulocytes Absolute 0.03 #; Lymphocytes # 0.4 10*3/uL (1.4-4.0); Lymphocytes % 7.8 % (21.3-54.2); Mean Corpuscular Volume 80.7 FL (87-102); Mean Platelet Volume 10.7 FL (9.6-12.0); Monocytes # 0.7 10*3/uL (0.11-0.8); Monocytes % 12.5 % (1.7-12.7); Neutrophils % 77.9 % (38.7-73.9); Platelet Count 277 T/CUMM (130-400); Red Blood Count 3.79 MC/CUMM (3.8-5.5); Red Cell Distribution Width 19.4 % (9.3-17.3); White Blood Count 5.26 T/CUMM (4-12)
[2022-10-19 06:54] LABS: Alanine Aminotransferase < 9 U/L (13-56); Albumin 1.8 G/DL (3.4-5.0); Alkaline Phosphatase 128 U/L (45-117); Aspartate Amino Transferase 31 U/L (0-37); Blood Urea Nitrogen 5 MG/DL (7-18); Calcium 9.1 MG/DL (8.5-10.1); Carbon Dioxide 26 MMOL/L (21-32); Chloride 105 MMOL/L (98-107); Glucose 62 MG/DL (74-106); Osmolality,Calculated 275.3 MOS/KG (273-304); Potassium 3.6 MMOL/L (3.5-5.1); Sodium 141 MMOL/L (136-145); Total Protein 5.6 G/DL (6.4-8.2)
[2022-10-19] MEDS ORDERED: DEXTROSE 50% 25 GM/50 ML VIAL IV PRN (07:23)
[2022-10-19] MEDS ORDERED: GLUCAGON 1 MG VIAL IM PRN (07:23)
[2022-10-19] MEDS ORDERED: CLINDAMYCIN INJ 900 MG/50 ML PREMIX IV ONE (07:40)
[2022-10-19 09:11] LABS: Hemoglobin A1 (Alkaline) 96.9 % (96.5-98.5); Hemoglobin A2 (Alkaline) 3.1 % (1.5-3.5)
[2022-10-19] MEDS ORDERED: LACTATED RINGERS 500 ML IV ONE (09:27)
[2022-10-19] MEDS ORDERED: LACTATED RINGERS 250 ML IV ONE (09:28)
[2022-10-19] MEDS: oxyCODONE/ACETAMINOPHEN 5-325 MG TABLET PO PRN (09:40)
[2022-10-19] MEDS: FOLIC ACID INJ 1 MG in SYRINGE 1 EACH IV SCH ×2 (10:22→20:49)
[2022-10-19] MEDS: FLUCONAZOLE INJ 200 MG/100 ML PREMIX IV SCH (11:17)
[2022-10-19] MEDS ORDERED: LIDOCAINE 1%/EPI INJ 20 ML VIAL ONE (13:44)
[2022-10-19] MEDS ORDERED: BUPIVACAINE MPF 0.25% 10 ML VIAL ONE (13:44)
[2022-10-19] MEDS ORDERED: propofoL 200 MG/20 ML VIAL IV ONE (14:07)
[2022-10-19] MEDS ORDERED: KETAMINE 500 MG/10 ML VIAL ONE (14:07)
[2022-10-19] MEDS ORDERED: LIDOCAINE 2% 5 ML VIAL ONE (14:07)
[2022-10-19] MEDS: FERROUS SULFATE 300 MG/5 ML UDCUP PO SCH ×2 (15:40→20:33)
[2022-10-19] MEDS: CHOLECALCIFEROL 1,000 UNIT TABLET PO SCH (15:40)
[2022-10-19] MEDS: [UNRECOGNIZED DRUG - OTHER] PO SCH ×2 (15:40→20:34)
[2022-10-19] MEDS: TAMOXIFEN 10 MG TABLET PO SCH (15:40)
[2022-10-19] MEDS: GABAPENTIN 400 MG CAPSULE PO SCH ×3 (15:40→20:33)
[2022-10-19] MEDS: DOCUSATE SODIUM 100 MG/10 ML UDCUP PO SCH ×2 (15:41→20:33)
[2022-10-19] MEDS: ONDANSETRON 4 MG/2 ML VIAL IV PRN (16:47)
[2022-10-19] MEDS: ENOXAPARIN 40 MG/0.4 ML SYRINGE SUBCUT SCH (17:03)
[2022-10-19] MEDS: CEFEPIME 1,000 MG in SODIUM CHLORIDE 0.9% 100 ML IV SCH (17:54)
[2022-10-19] MEDS: MORPHINE ER 30 MG TABLET PO PRN (18:48)
[2022-10-20] MEDS: CEFEPIME 1,000 MG in SODIUM CHLORIDE 0.9% 100 ML IV SCH ×5 (00:04→23:45)
[2022-10-20] MEDS: ALBUTEROL/IPRATROPIUM 3 ML NEB RESP TX SCH ×4 (01:00→20:14)
[2022-10-20] MEDS: HYDROmorphone 1 MG/1 ML SYRINGE IV PRN ×5 (04:47→21:10)
[2022-10-20 07:39] LABS: Basophils % 0.5 % (0.0-0.8); Eosinophils % 0.3 % (0.00-10.9); Hematocrit 33.9 VOL% (35.7-47.0); Hemoglobin 10.7 GM/DL (12.0-16.0); Immature Granulocytes % 0.5 %; Immature Granulocytes Absolute 0.03 #; Lymphocytes # 0.5 10*3/uL (1.4-4.0); Lymphocytes % 8.1 % (21.3-54.2); Mean Corpuscular HGB Conc 31.6 GM/DL (32-36); Mean Corpuscular Volume 80.5 FL (87-102); Mean Platelet Volume 12.3 FL (9.6-12.0); Monocytes % 15.7 % (1.7-12.7); Neutrophils % 74.9 % (38.7-73.9); Platelet Count 293 T/CUMM (130-400); Red Blood Count 4.21 MC/CUMM (3.8-5.5); Red Cell Distribution Width 19.9 % (9.3-17.3); White Blood Count 6.31 T/CUMM (4-12)
[2022-10-20 08:13] LABS: Eosinophils 2 % (0-10); Lymphocytes 8 % (20-55); Total Cells Counted 100
[2022-10-20 08:14] LABS: Hypochromia Slight; Microcytosis Slight; Platelet Estimate Adequate
[2022-10-20 08:15] LABS: Alanine Aminotransferase < 9 U/L (13-56); Albumin 1.8 G/DL (3.4-5.0); Alkaline Phosphatase 135 U/L (45-117); Aspartate Amino Transferase 35 U/L (0-37); Blood Urea Nitrogen 5 MG/DL (7-18); Calcium 9.1 MG/DL (8.5-10.1); Carbon Dioxide 27 MMOL/L (21-32); Chloride 103 MMOL/L (98-107); Glucose 65 MG/DL (74-106); Osmolality,Calculated 273.4 MOS/KG (273-304); Potassium 3.9 MMOL/L (3.5-5.1); Sodium 140 MMOL/L (136-145); Total Protein 6.1 G/DL (6.4-8.2)
[2022-10-20] MEDS: DEXTROSE 5% NACL 0.45% 1,000 ML IV SCH (08:21)
[2022-10-20] MEDS: TAMOXIFEN 10 MG TABLET PO SCH (09:32)
[2022-10-20] MEDS: GABAPENTIN 400 MG CAPSULE PO SCH ×3 (09:32→20:57)
[2022-10-20] MEDS: CHOLECALCIFEROL 1,000 UNIT TABLET PO SCH (09:33)
[2022-10-20] MEDS: ENOXAPARIN 40 MG/0.4 ML SYRINGE SUBCUT SCH (09:34)
[2022-10-20] MEDS: FLUCONAZOLE INJ 200 MG/100 ML PREMIX IV SCH (09:34)
[2022-10-20] MEDS: FERROUS SULFATE 300 MG/5 ML UDCUP PO SCH ×2 (09:46→20:58)
[2022-10-20] MEDS: DOCUSATE SODIUM 100 MG/10 ML UDCUP PO SCH ×2 (09:46→20:58)
[2022-10-20] MEDS: METOPROLOL TARTRATE 25 MG TABLET PO SCH ×2 (09:46→20:57)
[2022-10-20] MEDS: [UNRECOGNIZED DRUG - OTHER] PO SCH ×2 (09:51→20:58)
[2022-10-21] MEDS: HYDROmorphone 1 MG/1 ML SYRINGE IV PRN (02:30)
[2022-10-21] MEDS: ALBUTEROL/IPRATROPIUM 3 ML NEB RESP TX SCH ×4 (02:49→19:51)
[2022-10-21 04:55] LABS: Basophils % 0.3 % (0.0-0.8); Eosinophils % 0.2 % (0.00-10.9); Hematocrit 33.7 VOL% (35.7-47.0); Hemoglobin 10.6 GM/DL (12.0-16.0); Immature Granulocytes % 0.8 %; Immature Granulocytes Absolute 0.05 #; Lymphocytes # 0.4 10*3/uL (1.4-4.0); Lymphocytes % 6.8 % (21.3-54.2); Mean Corpuscular HGB Conc 31.5 GM/DL (32-36); Mean Platelet Volume 11.4 FL (9.6-12.0); Monocytes % 15.9 % (1.7-12.7); Platelet Count 297 T/CUMM (130-400); Red Blood Count 4.21 MC/CUMM (3.8-5.5); Red Cell Distribution Width 19.9 % (9.3-17.3); White Blood Count 6.05 T/CUMM (4-12)
[2022-10-21] MEDS: DEXTROSE 5% NACL 0.45% 1,000 ML IV SCH ×2 (04:59→23:26)
[2022-10-21 05:25] LABS: Eosinophils 2 % (0-10); Lymphocytes 4 % (20-55); Platelet Estimate Adequate; Total Cells Counted 100
[2022-10-21 05:26] LABS: Hypochromia Slight
[2022-10-21] MEDS: CEFEPIME 1,000 MG in SODIUM CHLORIDE 0.9% 100 ML IV SCH ×4 (06:04→23:25)
[2022-10-21] MEDS ORDERED: oxyCODONE/ACETAMINOPHEN 5-325 MG TABLET PO PRN (07:23)
[2022-10-21] MEDS ORDERED: NALOXONE 0.4 MG/ML VIAL IV PRN (07:24)
[2022-10-21 08:09] LABS: Alanine Aminotransferase < 6 U/L (13-56); Albumin 1.6 G/DL (3.4-5.0); Alkaline Phosphatase 118 U/L (45-117); Aspartate Amino Transferase 36 U/L (0-37); Blood Urea Nitrogen 6 MG/DL (7-18); Carbon Dioxide 26 MMOL/L (21-32); Chloride 105 MMOL/L (98-107); Glucose 106 MG/DL (74-106); Potassium 3.5 MMOL/L (3.5-5.1); Sodium 136 MMOL/L (136-145); Total Protein 5.5 G/DL (6.4-8.2)
[2022-10-21] MEDS ORDERED: DOXYCYCLINE HYCLATE INJ 200 MG, LIDOCAINE 1% INJ 20 ML in STERILE WATER INJ 30 ML INTRAPLEUR ONE (10:02)
[2022-10-21] MEDS: HYDROmorphone PCA 30 MG/30 ML SYRINGE IV SCH (10:43)
[2022-10-21] MEDS: fentaNYL 12 MCG/HR PATCH TRANSDERM SCH (10:48)
[2022-10-21] MEDS: GABAPENTIN 400 MG CAPSULE PO SCH ×3 (10:49→21:37)
[2022-10-21] MEDS: TAMOXIFEN 10 MG TABLET PO SCH (10:49)
[2022-10-21] MEDS: METOPROLOL TARTRATE 25 MG TABLET PO SCH ×2 (10:50→21:37)
[2022-10-21] MEDS: CHOLECALCIFEROL 1,000 UNIT TABLET PO SCH (10:50)
[2022-10-21] MEDS: FERROUS SULFATE 300 MG/5 ML UDCUP PO SCH ×2 (10:51→21:37)
[2022-10-21] MEDS: [UNRECOGNIZED DRUG - OTHER] PO SCH ×2 (10:51→21:38)
[2022-10-21] MEDS: DOCUSATE SODIUM 100 MG/10 ML UDCUP PO SCH ×2 (10:51→21:37)
[2022-10-21] MEDS: FLUCONAZOLE INJ 200 MG/100 ML PREMIX IV SCH (10:52)
[2022-10-21] MEDS: ENOXAPARIN 40 MG/0.4 ML SYRINGE SUBCUT SCH (10:52)
[2022-10-22] MEDS: ALBUTEROL/IPRATROPIUM 3 ML NEB RESP TX SCH ×4 (01:00→19:02)
[2022-10-22 04:17] LABS: Basophils % 0.6 % (0.0-0.8); Eosinophils % 0.8 % (0.00-10.9); Hematocrit 29.4 VOL% (35.7-47.0); Hemoglobin 9.1 GM/DL (12.0-16.0); Immature Granulocytes % 0.8 %; Immature Granulocytes Absolute 0.04 #; Lymphocytes # 0.4 10*3/uL (1.4-4.0); Lymphocytes % 8.4 % (21.3-54.2); Mean Corpuscular Volume 80.1 FL (87-102); Mean Platelet Volume 10.9 FL (9.6-12.0); Monocytes # 0.9 10*3/uL (0.11-0.8); Neutrophils % 72.4 % (38.7-73.9); Platelet Count 252 T/CUMM (130-400); Red Blood Count 3.67 MC/CUMM (3.8-5.5); Red Cell Distribution Width 19.7 % (9.3-17.3); White Blood Count 5.24 T/CUMM (4-12)
[2022-10-22 04:32] LABS: Eosinophils 1 % (0-10); Lymphocytes 9 % (20-55); Platelet Estimate Adequate; Total Cells Counted 100
[2022-10-22 04:33] LABS: Hypochromia Slight; Microcytosis Slight
[2022-10-22 05:22] LABS: Calcium 8.8 MG/DL (8.5-10.1); Osmolality,Calculated 273.5 MOS/KG (273-304); Potassium 3.3 MMOL/L (3.5-5.1)
[2022-10-22] MEDS: CEFEPIME 1,000 MG in SODIUM CHLORIDE 0.9% 100 ML IV SCH ×4 (05:39→22:07)
[2022-10-22] MEDS ORDERED: POTASSIUM CHLORIDE 20 MEQ TABLET PO ONE (07:38)
[2022-10-22] MEDS ORDERED: DOXYCYCLINE HYCLATE INJ 200 MG, LIDOCAINE 1% INJ 20 ML in STERILE WATER INJ 30 ML INTRAPLEUR ONE (08:30)
[2022-10-22] MEDS: ONDANSETRON 4 MG/2 ML VIAL IV PRN ×2 (08:40→22:07)
[2022-10-22] MEDS ORDERED: MAGNESIUM SULF RIDER 2 GM/50 ML PREMIX IV ONE (09:00)
[2022-10-22] MEDS: FERROUS SULFATE 300 MG/5 ML UDCUP PO SCH ×3 (09:12→21:44)
[2022-10-22] MEDS: DOCUSATE SODIUM 100 MG/10 ML UDCUP PO SCH ×3 (09:12→21:44)
[2022-10-22] MEDS: GABAPENTIN 400 MG CAPSULE PO SCH ×3 (09:12→21:28)
[2022-10-22] MEDS: METOPROLOL TARTRATE 25 MG TABLET PO SCH ×2 (09:13→21:28)
[2022-10-22] MEDS: CHOLECALCIFEROL 1,000 UNIT TABLET PO SCH (09:13)
[2022-10-22] MEDS: ENOXAPARIN 40 MG/0.4 ML SYRINGE SUBCUT SCH (09:14)
[2022-10-22] MEDS: TAMOXIFEN 10 MG TABLET PO SCH (09:14)
[2022-10-22] MEDS: FLUCONAZOLE INJ 200 MG/100 ML PREMIX IV SCH (09:15)
[2022-10-22] MEDS: [UNRECOGNIZED DRUG - OTHER] PO SCH ×2 (09:16→21:30)
[2022-10-22] MEDS: DEXTROSE 5% NACL 0.45% 1,000 ML IV SCH ×2 (17:31→21:24)
[2022-10-22] MEDS: HYDROmorphone PCA 30 MG/30 ML SYRINGE IV SCH (17:56)
[2022-10-23] MEDS: ALBUTEROL/IPRATROPIUM 3 ML NEB RESP TX SCH ×6 (00:41→22:25)
[2022-10-23] MEDS: CEFEPIME 1,000 MG in SODIUM CHLORIDE 0.9% 100 ML IV SCH ×3 (05:03→21:45)
[2022-10-23] MEDS: ONDANSETRON 4 MG/2 ML VIAL IV PRN ×2 (05:06→21:43)
[2022-10-23 05:26] LABS: Basophils % 0.6 % (0.0-0.8); Eosinophils % 0.7 % (0.00-10.9); Hematocrit 28.2 VOL% (35.7-47.0); Hemoglobin 8.8 GM/DL (12.0-16.0); Immature Granulocytes % 0.9 %; Immature Granulocytes Absolute 0.05 #; Lymphocytes # 0.4 10*3/uL (1.4-4.0); Lymphocytes % 8.2 % (21.3-54.2); Mean Corpuscular HGB Conc 31.2 GM/DL (32-36); Mean Corpuscular Volume 81.3 FL (87-102); Mean Platelet Volume 12.1 FL (9.6-12.0); Monocytes # 0.9 10*3/uL (0.11-0.8); Neutrophils % 73.6 % (38.7-73.9); Platelet Count 309 T/CUMM (130-400); Red Blood Count 3.47 MC/CUMM (3.8-5.5); Red Cell Distribution Width 19.8 % (9.3-17.3); White Blood Count 5.37 T/CUMM (4-12)
[2022-10-23 05:41] LABS: Calcium 8.8 MG/DL (8.5-10.1); Osmolality,Calculated 275.4 MOS/KG (273-304); Potassium 3.6 MMOL/L (3.5-5.1)
[2022-10-23 06:02] LABS: Eosinophils 2 % (0-10); Lymphocytes 14 % (20-55); Total Cells Counted 100
[2022-10-23 06:03] LABS: Hypochromia 2+; Ovalocytes 1+; Platelet Estimate Normal
[2022-10-23 06:04] LABS: Anisocytosis 1+; Schistocytes 1+
[2022-10-23] MEDS: [UNRECOGNIZED DRUG - OTHER] PO SCH ×2 (09:01→21:44)
[2022-10-23] MEDS: DOCUSATE SODIUM 100 MG/10 ML UDCUP PO SCH ×2 (09:02→21:45)
[2022-10-23] MEDS: TAMOXIFEN 10 MG TABLET PO SCH (09:02)
[2022-10-23] MEDS: CHOLECALCIFEROL 1,000 UNIT TABLET PO SCH (09:02)
[2022-10-23] MEDS: METOPROLOL TARTRATE 25 MG TABLET PO SCH ×2 (09:02→21:43)
[2022-10-23] MEDS: GABAPENTIN 400 MG CAPSULE PO SCH ×3 (09:02→21:43)
[2022-10-23] MEDS: ENOXAPARIN 40 MG/0.4 ML SYRINGE SUBCUT SCH (09:02)
[2022-10-23] MEDS: HYDROmorphone PCA 30 MG/30 ML SYRINGE IV SCH (09:03)
[2022-10-23] MEDS: FLUCONAZOLE INJ 200 MG/100 ML PREMIX IV SCH (09:10)
[2022-10-23] MEDS: FERROUS SULFATE 300 MG/5 ML UDCUP PO SCH ×2 (09:10→21:45)
[2022-10-23] MEDS: DEXTROSE 5% NACL 0.45% 1,000 ML IV SCH (16:22)
[2022-10-24] MEDS: METOPROLOL TARTRATE 25 MG TABLET PO SCH ×3 (01:57→21:54)
[2022-10-24] MEDS: GABAPENTIN 400 MG CAPSULE PO SCH ×4 (01:58→21:53)
[2022-10-24] MEDS: CEFEPIME 1,000 MG in SODIUM CHLORIDE 0.9% 100 ML IV SCH ×4 (02:28→21:54)
[2022-10-24 04:26] LABS: Basophils % 0.4 % (0.0-0.8); Eosinophils % 0.6 % (0.00-10.9); Hematocrit 28.8 VOL% (35.7-47.0); Hemoglobin 8.9 GM/DL (12.0-16.0); Immature Granulocytes % 1.1 %; Immature Granulocytes Absolute 0.05 #; Lymphocytes # 0.5 10*3/uL (1.4-4.0); Lymphocytes % 9.7 % (21.3-54.2); Mean Corpuscular HGB Conc 30.9 GM/DL (32-36); Mean Corpuscular Volume 81.1 FL (87-102); Mean Platelet Volume 11.9 FL (9.6-12.0); Monocytes # 0.9 10*3/uL (0.11-0.8); Monocytes % 19.2 % (1.7-12.7); Platelet Count 330 T/CUMM (130-400); Red Blood Count 3.55 MC/CUMM (3.8-5.5); White Blood Count 4.64 T/CUMM (4-12)
[2022-10-24 04:46] LABS: Hypochromia Slight; Lymphocytes 8 % (20-55); Microcytosis Slight; Platelet Estimate Adequate; Total Cells Counted 100
[2022-10-24 04:48] LABS: Calcium 9.1 MG/DL (8.5-10.1); Osmolality,Calculated 272.5 MOS/KG (273-304); Potassium 3.4 MMOL/L (3.5-5.1)
[2022-10-24] MEDS: ONDANSETRON 4 MG/2 ML VIAL IV PRN ×2 (06:29→12:18)
[2022-10-24] MEDS ORDERED: POTASSIUM CHLORIDE 20 MEQ TABLET PO ONE (07:16)
[2022-10-24] MEDS: ALBUTEROL/IPRATROPIUM 3 ML NEB RESP TX SCH ×3 (07:23→18:50)
[2022-10-24] MEDS: HYDROmorphone PCA 30 MG/30 ML SYRINGE IV SCH (09:37)
[2022-10-24] MEDS: CHOLECALCIFEROL 1,000 UNIT TABLET PO SCH (11:59)
[2022-10-24] MEDS: [UNRECOGNIZED DRUG - OTHER] PO SCH ×2 (12:00→21:54)
[2022-10-24] MEDS: TAMOXIFEN 10 MG TABLET PO SCH (12:00)
[2022-10-24] MEDS: fentaNYL 12 MCG/HR PATCH TRANSDERM SCH (12:02)
[2022-10-24] MEDS: FLUCONAZOLE INJ 200 MG/100 ML PREMIX IV SCH (12:11)
[2022-10-24] MEDS: DOCUSATE SODIUM 100 MG/10 ML UDCUP PO SCH ×2 (12:12→21:55)
[2022-10-24] MEDS: ENOXAPARIN 40 MG/0.4 ML SYRINGE SUBCUT SCH (12:12)
[2022-10-24] MEDS: FERROUS SULFATE 300 MG/5 ML UDCUP PO SCH ×2 (12:13→21:53)
[2022-10-24] MEDS: DEXTROSE 5% NACL 0.45% 1,000 ML IV SCH (12:17)
[2022-10-25] MEDS: ALBUTEROL/IPRATROPIUM 3 ML NEB RESP TX SCH ×4 (00:55→19:57)
[2022-10-25] MEDS: CEFEPIME 1,000 MG in SODIUM CHLORIDE 0.9% 100 ML IV SCH ×4 (01:57→21:39)
[2022-10-25 05:56] LABS: Basophils % 0.7 % (0.0-0.8); Eosinophils % 0.2 % (0.00-10.9); Hematocrit 29.1 VOL% (35.7-47.0); Hemoglobin 8.9 GM/DL (12.0-16.0); Immature Granulocytes Absolute 0.04 #; Lymphocytes # 0.5 10*3/uL (1.4-4.0); Lymphocytes % 11.5 % (21.3-54.2); Mean Corpuscular HGB Conc 30.6 GM/DL (32-36); Mean Platelet Volume 12.2 FL (9.6-12.0); Monocytes # 0.8 10*3/uL (0.11-0.8); Monocytes % 19.2 % (1.7-12.7); Neutrophils % 67.4 % (38.7-73.9); Platelet Count 360 T/CUMM (130-400); Red Blood Count 3.55 MC/CUMM (3.8-5.5); White Blood Count 4.07 T/CUMM (4-12)
[2022-10-25 06:17] LABS: Calcium 9.1 MG/DL (8.5-10.1); Osmolality,Calculated 275.4 MOS/KG (273-304); Potassium 3.7 MMOL/L (3.5-5.1)
[2022-10-25 06:25] LABS: Anisocytosis 1+; Eosinophils 1 % (0-10); Lymphocytes 8 % (20-55); Ovalocytes Slight; Polychromasia Slight; Target Cells Slight; Total Cells Counted 100
[2022-10-25 06:26] LABS: Hypochromia 1+; Tear Drop Cells Slight
[2022-10-25] MEDS ORDERED: DOXYCYCLINE HYCLATE INJ 200 MG, LIDOCAINE 1% INJ 20 ML in STERILE WATER INJ 30 ML INTRAPLEUR ONE (07:30)
[2022-10-25] MEDS: ENOXAPARIN 40 MG/0.4 ML SYRINGE SUBCUT SCH (10:45)
[2022-10-25] MEDS: TAMOXIFEN 10 MG TABLET PO SCH (10:45)
[2022-10-25] MEDS: GABAPENTIN 400 MG CAPSULE PO SCH ×3 (10:46→21:42)
[2022-10-25] MEDS: METOPROLOL TARTRATE 25 MG TABLET PO SCH ×2 (10:46→21:42)
[2022-10-25] MEDS: CHOLECALCIFEROL 1,000 UNIT TABLET PO SCH (10:46)
[2022-10-25] MEDS: [UNRECOGNIZED DRUG - OTHER] PO SCH ×2 (10:48→21:41)
[2022-10-25] MEDS: FERROUS SULFATE 300 MG/5 ML UDCUP PO SCH ×2 (10:50→21:40)
[2022-10-25] MEDS: DOCUSATE SODIUM 100 MG/10 ML UDCUP PO SCH ×2 (10:50→21:40)
[2022-10-25] MEDS: ONDANSETRON 4 MG/2 ML VIAL IV PRN ×3 (13:07→23:02)
[2022-10-25] MEDS: DEXTROSE 5% NACL 0.45% 1,000 ML IV SCH (17:33)
[2022-10-25] MEDS: HYDROmorphone PCA 30 MG/30 ML SYRINGE IV SCH (21:38)
[2022-10-26] MEDS: CEFEPIME 1,000 MG in SODIUM CHLORIDE 0.9% 100 ML IV SCH ×4 (01:43→20:39)
[2022-10-26] MEDS: ALBUTEROL/IPRATROPIUM 3 ML NEB RESP TX SCH ×4 (03:40→19:30)
[2022-10-26 05:55] LABS: Calcium 9.1 MG/DL (8.5-10.1); Osmolality,Calculated 275.4 MOS/KG (273-304); Potassium 3.5 MMOL/L (3.5-5.1)
[2022-10-26 06:01] LABS: Basophils % 0.7 % (0.0-0.8); Eosinophils % 0.5 % (0.00-10.9); Hematocrit 28.4 VOL% (35.7-47.0); Hemoglobin 8.8 GM/DL (12.0-16.0); Immature Granulocytes % 0.7 %; Immature Granulocytes Absolute 0.03 #; Lymphocytes # 0.6 10*3/uL (1.4-4.0); Lymphocytes % 14.3 % (21.3-54.2); Mean Corpuscular Volume 82.6 FL (87-102); Monocytes # 0.8 10*3/uL (0.11-0.8); Monocytes % 18.2 % (1.7-12.7); Neutrophils % 65.6 % (38.7-73.9); Platelet Count 338 T/CUMM (130-400); Red Blood Count 3.44 MC/CUMM (3.8-5.5); White Blood Count 4.13 T/CUMM (4-12)
[2022-10-26 06:28] LABS: Eosinophils 3 % (0-10); Hypochromia Slight; Lymphocytes 6 % (20-55); Microcytosis Slight; Platelet Estimate Adequate; Total Cells Counted 100
[2022-10-26] MEDS: ONDANSETRON 4 MG/2 ML VIAL IV PRN ×3 (10:15→22:05)
[2022-10-26] MEDS: TAMOXIFEN 10 MG TABLET PO SCH (10:15)
[2022-10-26] MEDS: METOPROLOL TARTRATE 25 MG TABLET PO SCH ×2 (10:16→20:37)
[2022-10-26] MEDS: CHOLECALCIFEROL 1,000 UNIT TABLET PO SCH (10:16)
[2022-10-26] MEDS: ENOXAPARIN 40 MG/0.4 ML SYRINGE SUBCUT SCH (10:17)
[2022-10-26] MEDS: DOCUSATE SODIUM 100 MG/10 ML UDCUP PO SCH ×2 (13:48→20:33)
[2022-10-26] MEDS: [UNRECOGNIZED DRUG - OTHER] PO SCH ×2 (13:48→20:34)
[2022-10-26] MEDS: GABAPENTIN 400 MG CAPSULE PO SCH ×3 (13:48→20:34)
[2022-10-26] MEDS: FERROUS SULFATE 300 MG/5 ML UDCUP PO SCH ×2 (13:48→20:33)
[2022-10-26] MEDS: HYDROmorphone PCA 30 MG/30 ML SYRINGE IV SCH (18:46)
[2022-10-26] MEDS: MORPHINE 2 MG/1 ML SYRINGE IV PRN (20:38)
[2022-10-27] MEDS: ALBUTEROL/IPRATROPIUM 3 ML NEB RESP TX SCH ×4 (01:08→20:03)
[2022-10-27] MEDS: MORPHINE 2 MG/1 ML SYRINGE IV PRN ×2 (01:30→05:45)
[2022-10-27] MEDS: CEFEPIME 1,000 MG in SODIUM CHLORIDE 0.9% 100 ML IV SCH (01:30)
[2022-10-27 06:09] LABS: Basophils % 0.8 % (0.0-0.8); Eosinophils % 0.4 % (0.00-10.9); Hematocrit 30.4 VOL% (35.7-47.0); Hemoglobin 9.2 GM/DL (12.0-16.0); Immature Granulocytes % 0.8 %; Immature Granulocytes Absolute 0.04 #; Lymphocytes # 0.6 10*3/uL (1.4-4.0); Lymphocytes % 12.3 % (21.3-54.2); Mean Corpuscular HGB Conc 30.3 GM/DL (32-36); Mean Corpuscular Volume 81.7 FL (87-102); Mean Platelet Volume 10.5 FL (9.6-12.0); Monocytes # 0.8 10*3/uL (0.11-0.8); Monocytes % 16.9 % (1.7-12.7); Neutrophils % 68.8 % (38.7-73.9); Platelet Count 392 T/CUMM (130-400); Red Blood Count 3.72 MC/CUMM (3.8-5.5); Red Cell Distribution Width 20.2 % (9.3-17.3); White Blood Count 4.78 T/CUMM (4-12)
[2022-10-27 06:21] LABS: Calcium 9.6 MG/DL (8.5-10.1); Osmolality,Calculated 276.3 MOS/KG (273-304); Potassium 3.3 MMOL/L (3.5-5.1)
[2022-10-27 06:36] LABS: Hypochromia Slight; Lymphocytes 12 % (20-55); Microcytosis Slight; Platelet Estimate Adequate; Total Cells Counted 100
[2022-10-27] MEDS ORDERED: POTASSIUM CHLORIDE 20 MEQ TABLET PO ONE (07:31)
[2022-10-27] MEDS ORDERED: oxyCODONE ER 10 MG TABLET PO PRN (07:45)
[2022-10-27] MEDS ORDERED: HYDROmorphone 1 MG/1 ML SYRINGE IV ONE (08:14)
[2022-10-27] MEDS: fentaNYL 25 MCG/HR PATCH TRANSDERM SCH (09:36)
[2022-10-27] MEDS: ENOXAPARIN 40 MG/0.4 ML SYRINGE SUBCUT SCH (09:36)
[2022-10-27] MEDS: HYDROmorphone 1 MG/1 ML SYRINGE IV PRN ×3 (11:49→21:27)
[2022-10-27] MEDS: CHOLECALCIFEROL 1,000 UNIT TABLET PO SCH (15:04)
[2022-10-27] MEDS: TAMOXIFEN 10 MG TABLET PO SCH (15:04)
[2022-10-27] MEDS: [UNRECOGNIZED DRUG - OTHER] PO SCH ×2 (15:04→21:30)
[2022-10-27] MEDS: METOPROLOL TARTRATE 25 MG TABLET PO SCH ×2 (15:05→21:30)
[2022-10-27] MEDS: DOCUSATE SODIUM 100 MG/10 ML UDCUP PO SCH ×2 (15:05→21:29)
[2022-10-27] MEDS: FERROUS SULFATE 300 MG/5 ML UDCUP PO SCH ×2 (15:05→21:30)
[2022-10-27] MEDS: GABAPENTIN 400 MG CAPSULE PO SCH ×2 (15:05→21:30)
[2022-10-27] MEDS: oxyCODONE ER 10 MG TABLET PO PRN (16:20)
[2022-10-27] MEDS: ESCITALOPRAM 10 MG TABLET PO SCH (21:30)
[2022-10-27] MEDS: ONDANSETRON 4 MG/2 ML VIAL IV PRN (23:30)
[2022-10-28] MEDS: ALBUTEROL/IPRATROPIUM 3 ML NEB RESP TX SCH ×4 (00:45→18:51)
[2022-10-28] MEDS: HYDROmorphone 1 MG/1 ML SYRINGE IV PRN ×6 (01:47→23:05)
[2022-10-28] MEDS: ONDANSETRON 4 MG/2 ML VIAL IV PRN ×2 (03:38→10:04)
[2022-10-28 06:56] LABS: Basophils % 0.4 % (0.0-0.8); Eosinophils % 0.2 % (0.00-10.9); Hematocrit 30.3 VOL% (35.7-47.0); Hemoglobin 9.4 GM/DL (12.0-16.0); Immature Granulocytes Absolute 0.05 #; Lymphocytes # 0.6 10*3/uL (1.4-4.0); Lymphocytes % 13.2 % (21.3-54.2); Mean Corpuscular Volume 81.2 FL (87-102); Mean Platelet Volume 11.3 FL (9.6-12.0); Monocytes # 0.8 10*3/uL (0.11-0.8); Monocytes % 15.6 % (1.7-12.7); Neutrophils % 69.6 % (38.7-73.9); Platelet Count 413 T/CUMM (130-400); Red Blood Count 3.73 MC/CUMM (3.8-5.5); Red Cell Distribution Width 20.2 % (9.3-17.3); White Blood Count 4.86 T/CUMM (4-12)
[2022-10-28 07:18] LABS: Albumin 1.6 G/DL (3.4-5.0); Bilirubin,Total 0.4 MG/DL (0.20-1.00); Calcium 9.4 MG/DL (8.5-10.1); Osmolality,Calculated 277.1 MOS/KG (273-304); Potassium 3.4 MMOL/L (3.5-5.1); Total Protein 5.7 G/DL (6.4-8.2)
[2022-10-28 07:25] LABS: Hypochromia Slight; Lymphocytes 10 % (20-55); Microcytosis Slight; Platelet Estimate Adequate; Total Cells Counted 100
[2022-10-28] MEDS ORDERED: HYDROmorphone 1 MG/1 ML SYRINGE IV ONE (07:58)
[2022-10-28] MEDS: DOCUSATE SODIUM 100 MG/10 ML UDCUP PO SCH ×2 (09:54→21:34)
[2022-10-28] MEDS: CHOLECALCIFEROL 1,000 UNIT TABLET PO SCH (09:54)
[2022-10-28] MEDS: [UNRECOGNIZED DRUG - OTHER] PO SCH ×2 (09:54→21:35)
[2022-10-28] MEDS: FERROUS SULFATE 300 MG/5 ML UDCUP PO SCH ×2 (09:54→21:34)
[2022-10-28] MEDS: POTASSIUM CHLORIDE RIDER 10 MEQ/100 ML PREMIX IV PRN (09:59)
[2022-10-28] MEDS: ONDANSETRON 4 MG/2 ML VIAL IV SCH ×3 (12:15→23:05)
[2022-10-28] MEDS: ENOXAPARIN 40 MG/0.4 ML SYRINGE SUBCUT SCH (12:20)
[2022-10-28] MEDS: METOPROLOL TARTRATE 25 MG TABLET PO SCH ×2 (12:21→21:34)
[2022-10-28] MEDS: GABAPENTIN 400 MG CAPSULE PO SCH ×3 (12:23→21:35)
[2022-10-28] MEDS: TAMOXIFEN 10 MG TABLET PO SCH (12:26)
[2022-10-28] MEDS: MORPHINE 2 MG/1 ML SYRINGE IV PRN ×2 (12:33→21:27)
[2022-10-28] MEDS: DEXTROSE 10% 250 ML BAG IV PRN ×3 (15:45→23:05)
[2022-10-28] MEDS: ESCITALOPRAM 10 MG TABLET PO SCH (21:34)
[2022-10-29] MEDS: ALBUTEROL/IPRATROPIUM 3 ML NEB RESP TX SCH ×5 (00:11→19:26)
[2022-10-29] MEDS: HYDROmorphone 1 MG/1 ML SYRINGE IV PRN ×5 (02:42→21:36)
[2022-10-29 04:41] LABS: Basophils % 0.7 % (0.0-0.8); Eosinophils % 0.2 % (0.00-10.9); Hematocrit 28.2 VOL% (35.7-47.0); Hemoglobin 8.7 GM/DL (12.0-16.0); Immature Granulocytes Absolute 0.04 #; Lymphocytes # 0.6 10*3/uL (1.4-4.0); Lymphocytes % 14.2 % (21.3-54.2); Mean Corpuscular HGB Conc 30.9 GM/DL (32-36); Mean Corpuscular Volume 81.3 FL (87-102); Mean Platelet Volume 10.6 FL (9.6-12.0); Monocytes # 0.8 10*3/uL (0.11-0.8); Neutrophils % 63.9 % (38.7-73.9); Platelet Count 369 T/CUMM (130-400); Red Blood Count 3.47 MC/CUMM (3.8-5.5); Red Cell Distribution Width 20.2 % (9.3-17.3); White Blood Count 4.16 T/CUMM (4-12)
[2022-10-29 05:08] LABS: Albumin 1.4 G/DL (3.4-5.0); Bilirubin,Total 0.4 MG/DL (0.20-1.00); Calcium 9.2 MG/DL (8.5-10.1); Osmolality,Calculated 275.4 MOS/KG (273-304); Potassium 3.1 MMOL/L (3.5-5.1); Total Protein 5.2 G/DL (6.4-8.2)
[2022-10-29 05:36] LABS: Lymphocytes 12 % (20-55); Platelet Estimate Adequate; Total Cells Counted 100
[2022-10-29] MEDS: ONDANSETRON 4 MG/2 ML VIAL IV SCH ×3 (06:09→18:53)
[2022-10-29] MEDS: POTASSIUM CHLORIDE RIDER 10 MEQ/100 ML PREMIX IV PRN (06:10)
[2022-10-29] MEDS: MORPHINE 2 MG/1 ML SYRINGE IV PRN (09:02)
[2022-10-29] MEDS: CHOLECALCIFEROL 1,000 UNIT TABLET PO SCH (09:17)
[2022-10-29] MEDS: FERROUS SULFATE 300 MG/5 ML UDCUP PO SCH ×2 (09:17→21:44)
[2022-10-29] MEDS: DOCUSATE SODIUM 100 MG/10 ML UDCUP PO SCH ×2 (09:17→21:43)
[2022-10-29] MEDS: TAMOXIFEN 10 MG TABLET PO SCH (09:17)
[2022-10-29] MEDS: GABAPENTIN 400 MG CAPSULE PO SCH ×3 (09:18→21:44)
[2022-10-29] MEDS: METOPROLOL TARTRATE 25 MG TABLET PO SCH ×2 (09:18→21:37)
[2022-10-29] MEDS: [UNRECOGNIZED DRUG - OTHER] PO SCH ×2 (09:18→21:44)
[2022-10-29] MEDS: ENOXAPARIN 40 MG/0.4 ML SYRINGE SUBCUT SCH (09:21)
[2022-10-29] MEDS: ONDANSETRON 4 MG/2 ML VIAL IV PRN ×3 (10:29→18:49)
[2022-10-29] MEDS: oxyCODONE ER 10 MG TABLET PO PRN ×2 (12:59→18:45)
[2022-10-30] MEDS: ALBUTEROL/IPRATROPIUM 3 ML NEB RESP TX SCH ×3 (00:56→15:32)
[2022-10-30] MEDS: ONDANSETRON 4 MG/2 ML VIAL IV SCH ×3 (01:27→11:53)
[2022-10-30] MEDS: HYDROmorphone 1 MG/1 ML SYRINGE IV PRN ×2 (02:44→09:59)
[2022-10-30] MEDS: oxyCODONE ER 10 MG TABLET PO PRN (05:00)
[2022-10-30 05:16] LABS: Basophils % 0.5 % (0.0-0.8); Hematocrit 27.5 VOL% (35.7-47.0); Hemoglobin 8.6 GM/DL (12.0-16.0); Immature Granulocytes % 0.7 %; Immature Granulocytes Absolute 0.03 #; Lymphocytes # 0.6 10*3/uL (1.4-4.0); Lymphocytes % 12.6 % (21.3-54.2); Mean Corpuscular HGB Conc 31.3 GM/DL (32-36); Mean Corpuscular Volume 80.9 FL (87-102); Mean Platelet Volume 10.6 FL (9.6-12.0); Monocytes # 0.8 10*3/uL (0.11-0.8); Monocytes % 17.6 % (1.7-12.7); Neutrophils % 68.6 % (38.7-73.9); Platelet Count 341 T/CUMM (130-400); Red Cell Distribution Width 20.1 % (9.3-17.3); White Blood Count 4.38 T/CUMM (4-12)
[2022-10-30 05:41] LABS: Eosinophils 3 % (0-10); Hypochromia Slight; Lymphocytes 9 % (20-55); Microcytosis Slight; Platelet Estimate Adequate; Total Cells Counted 100
[2022-10-30 05:55] LABS: Albumin 1.6 G/DL (3.4-5.0); Bilirubin,Total 0.4 MG/DL (0.20-1.00); Calcium 9.6 MG/DL (8.5-10.1); Osmolality,Calculated 274.4 MOS/KG (273-304); Potassium 3.6 MMOL/L (3.5-5.1); Total Protein 4.9 G/DL (6.4-8.2)
[2022-10-30] MEDS ORDERED: HYDROmorphone 2 MG TABLET PO PRN (07:49)
[2022-10-30] MEDS ORDERED: oxyCODONE ER 10 MG TABLET PO SCH (09:00)
[2022-10-30] MEDS: fentaNYL 25 MCG/HR PATCH TRANSDERM SCH (09:41)
[2022-10-30] MEDS: FERROUS SULFATE 300 MG/5 ML UDCUP PO SCH (09:43)
[2022-10-30] MEDS: DOCUSATE SODIUM 100 MG/10 ML UDCUP PO SCH (09:43)
[2022-10-30] MEDS: [UNRECOGNIZED DRUG - OTHER] PO SCH (09:44)
[2022-10-30] MEDS: CHOLECALCIFEROL 1,000 UNIT TABLET PO SCH (09:44)
[2022-10-30] MEDS: GABAPENTIN 400 MG CAPSULE PO SCH (09:44)
[2022-10-30] MEDS: ENOXAPARIN 40 MG/0.4 ML SYRINGE SUBCUT SCH (09:44)
[2022-10-30] MEDS: TAMOXIFEN 10 MG TABLET PO SCH (09:45)
[2022-10-30] MEDS: METOPROLOL TARTRATE 25 MG TABLET PO SCH (09:45)
[2022-10-30 12:16] VITALS: BP 118/76
== END 2022-10-30 15:54 | disposition home health service (06) | DRG 180 ==
LOC: N.ED 13:13 → SUATTDRO 18:12 → N.EDINP 18:12 → N.TELES 21:37
PROVIDERS: ADMIT Internal Medicine; ATTEND Family Medicine